=== PATIENT | female | born 1985 | race Caucasian/White ===

== ENCOUNTER 2017-06-12 16:02 | Emergency (ER) | payer MEDICAID, SELFPAY ==
[2017-06-12 16:03] VITALS: BP 123/75; PULSE 68; RESP 16; TEMP 36.9; O2SAT 99; BMI 24.7
--- NOTE | 2017-06-12 17:02 | ED.DCSUM_ITS ---
- ER Visit Summary Date of Service: 06/12/17 Chief Complaint: Right ear pain History of Present Illness: The patient is a [address] Ballesteros. She reports that she has pain just anterior to her right ear that began approximately 1 week ago. She reports a sharp pain is 10 out of 10 at worst 9 out of 10 currently. Is worsened by eating solids or opening her mouth. She taken Tylenol without relief. Patient reports that she had all of her teeth removed 2 years ago. She has not had anything like this previously. Physical Examination: Vitals: Stable. Afebrile. General: Well-nourished and well-developed. Head: Normocephalic atraumatic. HEENT: Right external auditory canal is normal. There is no swelling or exudate. She has no pain with movement of her pinna or palpation of her mastoid. She does have moderate tenderness palpation over her right TM joint. Dental: A dentulous. No pain over Stensen's duct. No evidence of abscess. Neck: Supple, no lymphadenopathy. No JVD. Nontender. Cardiovascular: Regular rate and rhythm. No murmurs. Respiratory: No respiratory distress. Clear to auscultation bilaterally. Abdominal: Soft, nontender, nondistended, normal bowel sounds. No guarding, rebound, or peritoneal signs. Back: Nontender. Extremities: Nontender, no edema. Skin: Normal color, no rash. Neurologic: Alert and oriented ?3. Cranial nerves II through XII are intact. Normal strength and sensation. Psych: Normal affect. Emergency Department Course and Treatment: Patient was given naproxen and is resting comfortably. Treatment Plan: She will be discharged with a prescription for naproxen and instructed to eat a soft diet. She is already made the appointment to see Dr. Bach. She is instructed to continue this appointment. I suggested that she also follow-up with her dentist and speak with them about the possibility of this being due to the fact that she is not had any dentures or teeth for 2 years. Disposition: To home in improved and stable condition. Impression: 1. 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 This note was generated with [employer] software. It may contain incorrect words, spelling, and punctuation that were not noted in review of the chart prior to signing ED Disposition - Plan for ED Patient: Disposition: Home or Assisted Living Chief Complaint: Ear Problem Instructions: ED TMJ Syndrome Prescriptions: Naproxen [Naprosyn] 500 mg PO BID PRN #20 tablet Referrals: Dentist,Your [STAFF PHYSICIAN] - As soon as possible Anup Chandler MD [STAFF PHYSICIAN] - Keep Anish appointment
[2017-06-12] MEDS: Naproxen 250 MG Tablet 500 MG PO (17:23)
[2017-06-12 17:24] VITALS: PULSE 72; RESP 14; O2SAT 99
== END 2017-06-12 17:25 | disposition home or self-care (01) ==
LOC: ED 17:11
PROVIDERS: Emergency Provider Emergency Medicine
DX: M26.601 Right temporomandibular joint disorder, unspecified (principal); K08.109 Complete loss of teeth, unspecified cause, unspecified class; J45.909 Unspecified asthma, uncomplicated; G40.909 Epilepsy, unspecified, not intractable, without status epilepticus; Z90.89 Acquired absence of other organs; F17.200 Nicotine dependence, unspecified, uncomplicated; Z79.899 Other long term (current) drug therapy
CPT/HCPCS: 99283

== ENCOUNTER 2017-07-18 17:13 | Emergency (ER) | payer MEDICAID, SELFPAY ==
[2017-07-18 17:14] VITALS: BP 96/72; PULSE 78; RESP 16; TEMP 36.9; O2SAT 99; BMI 25.4
[2017-07-18] MEDS: Ketorolac 30 MG/ML Syringe IM (18:16)
[2017-07-18] MEDS: SUMAtriptan 6 MG/0.5 ML Vial SC (18:16)
--- NOTE | 2017-07-18 19:16 | ED.VISSUMM ---
- ER Visit Summary Date of Service: 07/18/17 Chief Complaint: Headache History of Present Illness: The patient is a 32 F presenting for evaluation secondary to headache. Patient states that she has had a gradual onset of a headache over the course of the last hour or so. She describes it as a pressure and throbbing over the right side of her head. It is associated with dizziness nausea and photophobia. Patient does have prior history of similar headaches. She denies any direct trauma, fevers neck stiffness or skin rashes. Physical Examination: Vital signs: Within normal limits General: Well-nourished well-developed no acute distress Head: Normocephalic atraumatic, no temporal artery tenderness or vesicular rash noted. No sinus tenderness to percussion. Eyes: PERRLA, EOMI. Direct funduscopy shows no evidence of hemorrhage or papilledema. Neck: Supple, no lymphadenopathy, no JVD no meningismus. Negative Brudzinski, Kernig, jolt, and heel strike Cardiovascular: Heart regular rate and rhythm no murmurs Respiratory: Lung sounds clear to auscultation bilaterally no respiratory distress Abdomen: Soft, nontender Extremities: Nontender, no edema Skin: Normal color, no rash, no evidence of petechia Neuro: Alert and oriented ?4, cranial nerves II through XII intact, normal strength, sensation Test Results: None indicated Emergency Department Course and Treatment: Patient presented with headache. There were no red flag signs or symptoms noted. Patient was treated with Imitrex Toradol and Reglan and did have symptomatic improvement on repeat evaluation. Patient was discharged with follow-up with her primary care physician. Disposition: Discharge Impression: 1. Migraine headache This note was generated with [employer] dictation software. It may contain incorrect words, spelling, and punctuation that were not noted in review of the chart prior to signing ED Disposition - Plan for ED Patient: Disposition: Home or Assisted Living Chief Complaint: Headache Diagnosis: Headache Instructions: ED Cephalgia Unspecified Referrals: Grace Kaur [Primary Care Provider] - As Needed
[2017-07-18 19:25] VITALS: BP 105/70; PULSE 62; RESP 14; O2SAT 99
[2017-07-18] MEDS: Metoclopramide 10 MG Tablet PO (19:28)
== END 2017-07-18 19:38 | disposition home or self-care (01) ==
PROVIDERS: Emergency Provider Emergency Medicine; PCP Family Medicine
DX: G43.909 Migraine, unspecified, not intractable, without status migrainosus (principal); J45.909 Unspecified asthma, uncomplicated; Z79.899 Other long term (current) drug therapy; Z72.0 Tobacco use
CPT/HCPCS: 96372; 99283; J3030

== ENCOUNTER 2017-08-12 21:05 | Emergency (ER) | payer MEDICAID, SELFPAY ==
[2017-08-12 21:07] VITALS: BP 93/57; PULSE 76; RESP 12; TEMP 36.9; O2SAT 95; BMI 26.6
--- NOTE | 2017-08-12 21:28 | RAD_ITS ---
STUDY: X-RAY - PELVIS REASON FOR EXAM: Female, 32 years old. Pain TECHNIQUE: One view of the pelvis was obtained. COMPARISON: None. FINDINGS: There is no evidence of fracture or dislocation. There are no significant degenerative changes. There are no radiodense foreign bodies. RAD/Pelvis 1 or 2 Views IMPRESSION: No fracture or dislocation. Electronically Signed: Mike Espinoza, at 21:58 EDT Tel , Service support ,
--- NOTE | 2017-08-12 21:54 | ED.VISSUMM ---
- ER Visit Summary Date of Service: 08/12/17 Chief Complaint: Left hip pain History of Present Illness: The patient is a 32 F who states that last night she was ordered out of her car by the police. She states that on her way out of the car the car door came back and hit her on the left hip. She states she has a bruise. She states she can barely walk because of the pain. Physical Examination: Afebrile vital signs are stable Gen: Well-nourished well-developed Head: Normocephalic atraumatic Eyes: Perrl EOMI ENT: TMs clear no rhinorrhea moist mucous membranes Neck: Supple no lymphadenopathy no JVD nontender CVS: Regular rate rhythm no murmurs normal S1-S2 Respiratory: No distress clear to auscultation bilaterally chest nontender Abdomen: Soft nondistended normal bowel sounds no masses The patient points to the ASIS on the left side as the area that is bruised. There is an actual brown faint bruise located 2 inches posterior to where she is pointing. When I point this out she says oh yes it is back there. When I palpate her lower ribs she has to hold onto a friend's hand as she rolls around on the bed in pain. This is even with simple light touch of the skin. The actual greater trochanter of the hip is nontender. She moves the hip normally. When I am not in the room she is laughing and moving the hip normally. Back: Nontender Extremity: Nontender no edema Skin: Normal color no rash Neuro: alert orientated ?3 CN II-XII intact normal strength sensation reflexes gait cerebellar Psych: Extremely dramatic Test Results: Pelvis film pain attention to the left iliac crest is negative for fracture Emergency Department Course and Treatment: Patient will be discharged home with Tylenol and ibuprofen instructions to follow-up as needed. Patient states that she does not believe that her x-rays are negative. She states that her muscle is hurting and she knows that she broke it. Patient states that she recently had a take her mother to [place] to have surgery because we told her her ankle was fine and it was really broken. Another member of her [employer] party chimes in and states that he injured his ankle in 1 year later found out that he had torn his ACL in his ankle. The patient states that I do not know shit She states that I can go fuck off. I informed the patient that I had reservations even calling her injury a bruise. The area that she points to is atraumatic. When I pointed out the area of brownish discoloration that may be a bruise it was 2 inches behind the area that she pointed to her pain. I believe the patient is here for reasons that she is not being truthful for. Impression:. 1. Left abdominal wall pain This note was generated with [employer] dictation software. It may contain incorrect words, spelling, and punctuation that were not noted in review of the chart prior to signing ED Disposition - Plan for ED Patient: Disposition: Home or Assisted Living Chief Complaint: Lower Extremity Injury Instructions: ED Contusion Soft Tissue Referrals: Grace Kaur [Primary Care Provider] - As Needed
--- NOTE | 2017-08-12 21:57 | ED.DCSUM_ITS ---
- ER Visit Summary Date of Service: 08/12/17 Chief Complaint: Left hip pain History of Present Illness: The patient is a 32 F who states that last night she was ordered out of her car by the police. She states that on her way out of the car the car door came back and hit her on the left hip. She states she has a bruise. She states she can barely walk because of the pain. Physical Examination: Afebrile vital signs are stable Gen: Well-nourished well-developed Head: Normocephalic atraumatic Eyes: Perrl EOMI ENT: TMs clear no rhinorrhea moist mucous membranes Neck: Supple no lymphadenopathy no JVD nontender CVS: Regular rate rhythm no murmurs normal S1-S2 Respiratory: No distress clear to auscultation bilaterally chest nontender Abdomen: Soft nondistended normal bowel sounds no masses The patient points to the ASIS on the left side as the area that is bruised. There is an actual brown faint bruise located 2 inches posterior to where she is pointing. When I point this out she says oh yes it is back there. When I palpate her lower ribs she has to hold onto a friend's hand as she rolls around on the bed in pain. This is even with simple light touch of the skin. The actual greater trochanter of the hip is nontender. She moves the hip normally. When I am not in the room she is laughing and moving the hip normally. Back: Nontender Extremity: Nontender no edema Skin: Normal color no rash Neuro: alert orientated ?3 CN II-XII intact normal strength sensation reflexes gait cerebellar Psych: Extremely dramatic Test Results: Pelvis film pain attention to the left iliac crest is negative for fracture Emergency Department Course and Treatment: Patient will be discharged home with Tylenol and ibuprofen instructions to follow-up as needed. Patient states that she does not believe that her x-rays are negative. She states that her muscle is hurting and she knows that she broke it. Patient states that she recently had a take her mother to [place] to have surgery because we told her her ankle was fine and it was really broken. 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 The patient states that I do not know shit She states that I can go fuck off. I informed the patient that I had reservations even calling her injury a bruise. The area that she points to is atraumatic. When I pointed out the area of brownish discoloration that may be a bruise it was 2 inches behind the area that she pointed to her pain. I believe the patient is here for reasons that she is not being truthful for. Impression:. 1. Left abdominal wall pain This note was generated with [employer] dictation software. It may contain incorrect words, spelling, and punctuation that were not noted in review of the chart prior to signing ED Disposition - Plan for ED Patient: Disposition: Home or Assisted Living Chief Complaint: Lower Extremity Injury Instructions: ED Contusion Soft Tissue Referrals: Grace Kaur [Primary Care Provider] - As Needed
[2017-08-12 22:18] VITALS: PULSE 77; RESP 15; O2SAT 97
--- NOTE | 2017-08-12 22:21 | ED.RN ---
d/c instructions reviewed with patient. pt upset and reports she hasn't heard from the doctor. informed dr escobar, he went back to inform patient that the xray was negative and to take tylenol or motrin for pain. pt became irritated and said that her mother had been misdiagnosed the last time she was here. reviewed radiology findings with patient and informed again that it was negative for fracture or dislocation. tylenol & motrin is best treatment at home.
== END 2017-08-12 22:24 | disposition home or self-care (01) ==
PROVIDERS: Emergency Provider Emergency Medicine; Family Provider Family Medicine; PCP Family Medicine
DX: S70.02XA Contusion of left hip, initial encounter (principal); R10.9 Unspecified abdominal pain; W22.8XXA Striking against or struck by other objects, initial encounter; Y93.9 Activity, unspecified; Y92.9 Unspecified place or not applicable; J45.909 Unspecified asthma, uncomplicated; F98.8 Other specified behavioral and emotional disorders with onset usually occurring in childhood and adolescence; Z90.89 Acquired absence of other organs; Z79.899 Other long term (current) drug therapy
CPT/HCPCS: 72170; 99282

== ENCOUNTER 2017-09-05 02:27 | Emergency (ER) | payer MEDICAID, SELFPAY ==
[2017-09-05 02:28] VITALS: BP 104/58; PULSE 70; RESP 18; TEMP 37.2; O2SAT 98; BMI 26.3
--- NOTE | 2017-09-05 03:35 | ED.VISSUMM ---
- ER Visit Summary Date of Service: 09/05/17 Chief Complaint: Seizure History of Present Illness: The patient is a 32 F presenting for evaluation due to seizure. Patient has an underlying history of seizures, she usually takes Lamictal, she has been out of it not taking it. She had tonic-clonic seizure today. She denies any recent illness. Physical Examination: Vital signs are within normal limits, patient is afebrile. General: Patient is well-nourished well-developed and in no acute distress. Head: Normocephalic, atraumatic Eyes: Pupils equal round and reactive bilaterally, extra occular motion intact bialterally ENT: Moist mucous membranes, there is a tongue piercing but no evidence of tongue laceration or abrasion Neck: Supple, no lymphadenopathy, no JVD, no meningismus CVS: Heart regular rate and rhythm, no murmurs, rubs or gallops, radial pulses 2+ bilaterally Resp: Respirations nondistressed, lung sounds clear bilaterally Abdomen: Soft, nontender, nondistended, no palpable masses, normal bowel sounds Back: Nontender Extremities: Nontender, atraumatic, active full range of motion, no peripheral edema Skin: warm, no rashes, no petechia Neuro: Alert and oriented x 4, CN 2-12 intact, no lateralizing neurological defecits Psyc: Normal affect Test Results: None indicated Emergency Department Course and Treatment: Patient presented secondary to breakthrough seizure due to medication noncompliance. She was administered Lamictal in the emergency department. Patient was observed for an hour she had full return of normal consciousness and no repeat seizure episodes. Patient will be given referral to neurology, and will be discharged with a course of Lamictal. Disposition: Discharge Impression: 1. Breakthrough seizure secondary to medication noncompliance This note was generated with [employer] dictation software. It may contain incorrect words, spelling, and punctuation that were not noted in review of the chart prior to signing ED Disposition - Plan for ED Patient: Disposition: Home or Assisted Living Chief Complaint: Seizure Diagnosis: Breakthrough seizure Instructions: ED Seizure Recurrent Prescriptions: Lamotrigine [Lamictal] 200 mg PO BID #60 tab Referrals: Grace Kaur [Primary Care Provider] - As soon as possible Nilam Austin MD [STAFF PHYSICIAN] - As soon as possible
--- NOTE | 2017-09-05 03:40 | ED.DCSUM_ITS ---
- ER Visit Summary Date of Service: 09/05/17 Chief Complaint: Seizure History of Present Illness: The patient is a 32 F presenting for evaluation due to seizure. Patient has an underlying history of seizures, she usually takes Lamictal, she has been out of it not taking it. She had tonic-clonic seizure today. She denies any recent illness. Physical Examination: Vital signs are within normal limits, patient is afebrile. General: Patient is well-nourished well-developed and in no acute distress. Head: Normocephalic, atraumatic Eyes: Pupils equal round and reactive bilaterally, extra occular motion intact bialterally ENT: Moist mucous membranes, there is a tongue piercing but no evidence of tongue laceration or abrasion Neck: Supple, no lymphadenopathy, no JVD, no meningismus CVS: Heart regular rate and rhythm, no murmurs, rubs or gallops, radial pulses 2 + bilaterally Resp: Respirations nondistressed, lung sounds clear bilaterally Abdomen: Soft, nontender, nondistended, no palpable masses, normal bowel sounds Back: Nontender Extremities: Nontender, atraumatic, active full range of motion, no peripheral edema Skin: warm, no rashes, no petechia Neuro: Alert and oriented x 4, CN 2-12 intact, no lateralizing neurological defecits Psyc: Normal affect Test Results: None indicated Emergency Department Course and Treatment: Patient presented secondary to breakthrough seizure due to medication noncompliance. She was administered Lamictal in the emergency department. Patient was observed for an hour she had full return of normal consciousness and no repeat seizure episodes. Patient will be given referral to neurology, and will be discharged with a course of Lamictal. Disposition: Discharge Impression: 1. Breakthrough seizure secondary to medication noncompliance This note was generated with [employer] dictation software. It may contain incorrect words, spelling, and punctuation that were not noted in review of the chart prior to signing ED Disposition - Plan for ED Patient: Disposition: Home or Assisted Living Chief Complaint: Seizure Diagnosis: Breakthrough seizure Instructions: ED Seizure Recurrent Prescriptions: Lamotrigine [Lamictal] 200 mg PO BID #60 tab Referrals: Grace Kaur [Primary Care Provider] - As soon as possible Nilam Austin MD [STAFF PHYSICIAN] - As soon as possible
[2017-09-05] MEDS: lamoTRIgine 100 MG Tablet 250 MG PO (04:01)
[2017-09-05 04:02] VITALS: BP 99/57; PULSE 77; RESP 22; O2SAT 98
== END 2017-09-05 04:10 | disposition home or self-care (01) ==
PROVIDERS: Emergency Provider Emergency Medicine; Family Provider Family Medicine; PCP Family Medicine
DX: G40.909 Epilepsy, unspecified, not intractable, without status epilepticus (principal); Z91.14 Patient's other noncompliance with medication regimen; Z79.899 Other long term (current) drug therapy
CPT/HCPCS: 99284; A4216

== ENCOUNTER 2017-11-09 03:29 | Emergency (ER) | payer MEDICAID, SELFPAY ==
[2017-11-09 03:30] VITALS: BP 104/66; PULSE 72; RESP 14; TEMP 37.1; O2SAT 98
[2017-11-09 03:31] VITALS: BP 104/66; PULSE 73; RESP 14; TEMP 37.1; O2SAT 97; BMI 24.7
--- NOTE | 2017-11-09 04:35 | ED.VISSUMM ---
- ER Visit Summary Date of Service: 11/09/17 Chief Complaint: Rash History of Present Illness: The patient is a 32 F who presents for 2 days of rash on her right upper extremity. Patient has had a type II for 2 months that has some pink ink in it. Patient developed an itchy rash located over the tattoo 2 days ago. She is also complaining of to itchy bumps on her right arm. Denies fever or any other constitutional symptoms. She is allergic to Benadryl. Physical Examination: Patient is awake and alert, well-appearing. Tattoo on the right anterior forearm with erythematous coalescing papules, mainly over the pink ink. 2 nodules on the left shoulder consistent with arthropod bites. Remainder of exam unremarkable. Test Results: [] Emergency Department Course and Treatment: Patient's examination is consistent with an irritant dermatitis, which appears to be from the tattoo ink. There is no evidence of cellulitis. Patient was prescribed hydrocortisone cream to use on the areas of irritation, including on the insect bites to help with the itching. Patient is very well-appearing and no other workup is indicated at this time. She is to follow-up with her primary care provider for any further concerns. Patient discharged home. Treatment Plan: [] Disposition: [] Impression: dermatitis secondary to tattoo ink This note was generated with [employer] dictation software. It may contain incorrect words, spelling, and punctuation that were not noted in review of the chart prior to signing ED Disposition - Plan for ED Patient: Chief Complaint: Rash Prescriptions: Hydrocortisone 1% Crm [Hytone] 1 applic TOPICAL BID 7 Days #1 tube Referrals: Grace Kaur [Primary Care Provider] -
--- NOTE | 2017-11-09 04:38 | ED.DEP ---
ED Disposition - Plan for ED Patient: Disposition: Home or Assisted Living Chief Complaint: Rash Instructions: ED Dermatitis Non Specific Rash Prescriptions: Hydrocortisone 1% Crm [Hytone] 1 applic TOPICAL BID 7 Days #1 tube Referrals: Grace Kaur [Primary Care Provider] - 3-5 Days if not improving
[2017-11-09 04:43] VITALS: BP 106/70; PULSE 80; RESP 18; O2SAT 97
== END 2017-11-09 04:43 | disposition home or self-care (01) ==
PROVIDERS: Emergency Provider Emergency Medicine; Family Provider Family Medicine; PCP Family Medicine
DX: L24.89 Irritant contact dermatitis due to other agents (principal); G40.909 Epilepsy, unspecified, not intractable, without status epilepticus; J45.909 Unspecified asthma, uncomplicated; Z79.899 Other long term (current) drug therapy
CPT/HCPCS: 99282

== ENCOUNTER 2017-11-19 01:38 | Emergency (ER) | payer MEDICAID, SELFPAY ==
[2017-11-19 01:39] VITALS: BP 104/56; PULSE 63; RESP 20; TEMP 37.2; O2SAT 99; BMI 25.4
--- NOTE | 2017-11-19 01:57 | CT_ITS ---
STUDY: CT ABDOMEN AND PELVIS WITHOUT CONTRAST REASON FOR EXAM: Female, 32 years old. Left upper quadrant abdominal pain with nausea and vomiting. Patient has had an appendectomy. RADIATION DOSAGE (If Supplied By Facility): CTDIvol = ( 6.61 ) mGy, DLP = ( 326.90 ) mGycm TECHNIQUE: Transaxial images were obtained from the dome of the diaphragm to the symphysis pubis without oral contrast, and without intravenous contrast. Sagittal and coronal images were reconstructed. Individualized dose optimization techniques were used for this CT. COMPARISON: None. FINDINGS: The visualized lung bases are unremarkable. The visualized portions of the heart are within normal limits. Normal liver. The gallbladder is contracted. Normal spleen. Normal pancreas. Normal bilateral adrenal glands. Normal right kidney. Normal left kidney. Normal visualized stomach. There is no evidence for dilated bowel, ascites or pneumoperitoneum. Small bowel has a grossly normal appearance. Stool is visible throughout the colon There is non-visualization of the appendix. Normal abdominal aorta. Normal inferior vena cava. Normal retroperitoneum. Normal urinary bladder. Normal visualized uterus. Normal abdominal wall. Normal osseous structures. CT/Abdomen/Pelvis without Cont IMPRESSION: No CT evidence of acute intra-abdominal disease. Electronically Signed: Rhoda Tripp MD at 3:55 EDT , Service support ,
[2017-11-19] MEDS: 0.9% Normal Saline 1,000 ML 250 ML IV (02:07)
[2017-11-19] MEDS: Ondansetron 4 MG/2 ML Vial IV (02:08)
[2017-11-19] MEDS: Ketorolac 30 MG/ML Syringe IV (02:13)
[2017-11-19 02:20] LABS: Bacteria 0 SEEN /hpf (None Seen); Red Blood Cells-Urine 0 SEEN /hpf (0-5); White Blood Cells 0 SEEN /hpf (0-5)
[2017-11-19 02:23] LABS: Color, Urine Yellow (Yellow); Glucose, Dipstick Normal (Normal); Ketone-Dipstick Negative (Negative); Leukocyte Esterase-Dipstick Negative /ul (Negative); Nitrite-Dipstick Negative (Negative); Occult Blood-Urine Negative /ul (Negative); Protein-Dipstick Negative (Negative); Specific Gravity, Urine 1.025 (1.002-1.030); Urine Bilirubin Dipstick Negative (Negative); Urine Clarity Clear (Clear); Urine Urobilinogen Normal (Normal)
[2017-11-19 02:34] LABS: Mucous, Urine 1+ /hpf (<or=2+); Squamous Epithelial Cells - UA 5-10 SEEN /hpf (5-10)
[2017-11-19 02:39] LABS: Pregnancy, Serum, hCG Quali. NEGATIVE Negative (0-9 Nonpreg)
--- NOTE | 2017-11-19 02:41 | ED.VISSUMM ---
- ER Visit Summary Date of Service: 11/19/17 Chief Complaint: Left flank pain History of Present Illness: The patient is a [address] Ballesteros. She reports that at 1230 she had the abrupt onset of a sharp, throbbing left flank pain with radiation to left upper abdomen. Pain is 10 out of 10 at worst 9 out of 10 currently. It is worsened by laying straight. Is relieved by sitting up. She reports she has been nausea and vomited twice. No blood or emesis. Last bowel movement was yesterday. No melena or hematochezia. Patient reports that she has had frequent urination for the past 2 days. No dysuria or hematuria. Her last menstrual period was November 01. No vaginal bleeding or discharge. No personal history of kidney stones. She does have a family history of kidney stones. Physical Examination: Vitals: Stable. Afebrile. General: Well-nourished and well-developed. Head: Normocephalic atraumatic. Neck: Supple, no lymphadenopathy. No JVD. Nontender. Cardiovascular: Regular rate and rhythm. No murmurs. Respiratory: No respiratory distress. Clear to auscultation bilaterally. Abdominal: Soft, moderate left upper quadrant tenderness to palpation, nondistended, normal bowel sounds. No guarding, rebound, or peritoneal signs. Back: Moderate left CVA tenderness. Extremities: Nontender, no edema. Skin: Normal color, no rash. Neurologic: Alert and oriented ?3. Cranial nerves II through XII are intact. Normal strength and sensation. Psych: Normal affect. Test Results: UA is negative. test is negative. CT flank shows no acute disease. Emergency Department Course and Treatment: Patient had an IV placed. She was given Toradol and Zofran IV. She is resting comfortably. Treatment Plan: Patient will be discharged with Zofran and naproxen. Instructed to follow with her primary care physician in 1-2 days if not improving. Return to the emergency department for any worsening symptoms. Disposition: To home in improved and stable condition. Impression: 1. Left flank pain, acute. This note was generated with [employer] dictation software. It may contain incorrect words, spelling, and punctuation that were not noted in review of the chart prior to signing ED Disposition - Plan for ED Patient: Chief Complaint: Abd Pain Instructions: ED Flank Pain Uncertain Cause Prescriptions: Ondansetron [Zofran Odt] 4 mg PO Q8H PRN PRN #10 tablet PRN Reason: Nausea Naproxen [Naprosyn] 500 mg PO BID #14 tablet Referrals: Grace Kaur [Primary Care Provider] - 1-2 Days if not improving
[2017-11-19 04:24] VITALS: BP 95/48; PULSE 71; RESP 14; O2SAT 98
--- NOTE | 2017-11-19 04:25 | ED.RN ---
THIS NURSE REVIEWED D/C INSTRUCTIONS WITH PT. PT VERBALIZED UNDERSTANDING OF INSTRUCTIONS. IV D/C. IV CATHETER INTACT. PT TOLERATED WELL. PT DENIES FURTHER NEEDS OR QUESTIONS AT THIS TIME. PT AMBULATES FROM ROOM ON OWN WITHOUT ASSISTANCE FROM STAFF
== END 2017-11-19 04:26 | disposition home or self-care (01) ==
PROVIDERS: Emergency Provider Emergency Medicine; Family Provider Family Medicine; PCP Family Medicine
DX: R10.9 Unspecified abdominal pain (principal); R11.2 Nausea with vomiting, unspecified; R35.0 Frequency of micturition; J45.909 Unspecified asthma, uncomplicated; G40.909 Epilepsy, unspecified, not intractable, without status epilepticus; Z79.899 Other long term (current) drug therapy; F17.200 Nicotine dependence, unspecified, uncomplicated
CPT/HCPCS: 74176; 81001; 84703; 96361; 96374; 96375; 99283; J7030

== ENCOUNTER 2017-11-22 22:37 | Emergency (ER) | payer MEDICAID, SELFPAY ==
[2017-11-22 22:38] VITALS: BP 91/61; PULSE 115; RESP 20; TEMP 36.7; O2SAT 100; BMI 24.7
--- NOTE | 2017-11-22 23:22 | ED.VISSUMM ---
- ER Visit Summary Date of Service: 11/22/17 Chief Complaint: [Right ear pain and right-sided sore throat] History of Present Illness: The patient is a 32 F [presents to the emergency department with complaint of sore throat and right ear pain that started around 6 PM today. Patient complains of pain with swallowing. Patient's had some mild nausea. Patient denies any fever. Patient denies sick contacts.] Physical Examination: [HEENT-PERRLA, EOMI. Cranial nerves II through XII grossly intact. TMs clear. Mucous membranes moist. No adenopathy. Patient has some faint pharyngeal erythema noted. No exudates. Uvula in the midline without trismus. Cardiovascular-regular rate and rhythm without murmur or ectopy Lungs-clear to auscultation, chest wall stable without crepitus or subcu emphysema Abdomen-normoactive bowel sounds, soft, nontender, no rebound or rigidity, no peritoneal signs. Extremities-intact ?4, normal range of motion, normal pulses, atraumatic] Test Results: [Rapid strep screen was negative] Emergency Department Course and Treatment: [Patient was given Dickinson for pain] Treatment Plan: [Dickinson tablets for pain] Disposition: [Discharged to home in stable condition. Patient advised to follow-up with her primary care physician in 5-7 days. Patient to return if worsening pain, difficulty swallowing secretions, or condition should worsen in any way.] Impression: [Viral pharyngitis] This note was generated with [employer] dictation software. It may contain incorrect words, spelling, and punctuation that were not noted in review of the chart prior to signing ED Disposition - Plan for ED Patient: Chief Complaint: Sore Throat Referrals: Grace Kaur [Primary Care Provider] -
--- NOTE | 2017-11-22 23:24 | ED.DEP ---
ED Disposition - Plan for ED Patient: Chief Complaint: Sore Throat Instructions: ED Pharyngitis Viral Prescriptions: Hydrocodone Bitart/Apap 5-325 [[place] 5MG-325MG] 1 tab PO Q4H PRN PRN 2 Days #10 tab PRN Reason: Pain Referrals: Grace Kaur [Primary Care Provider] - 5-7 Days
[2017-11-22] MEDS: HYDROcodone Bitartrate/Apap 5/325 Tablet PO (23:32)
== END 2017-11-22 23:35 | disposition home or self-care (01) ==
LOC: ED 23:24
PROVIDERS: Emergency Provider Emergency Medicine; Family Provider Family Medicine; PCP Family Medicine
DX: J02.9 Acute pharyngitis, unspecified (principal); H92.01 Otalgia, right ear; R11.0 Nausea; R05 Cough; J45.909 Unspecified asthma, uncomplicated; G40.909 Epilepsy, unspecified, not intractable, without status epilepticus; Z79.899 Other long term (current) drug therapy; Z72.0 Tobacco use
CPT/HCPCS: 87880; 99282

== ENCOUNTER 2017-12-31 21:02 | Emergency (ER) | payer MEDICAID, SELFPAY ==
[2017-12-31 21:02] VITALS: BP 90/57; PULSE 78; RESP 16; TEMP 36.6; O2SAT 99; BMI 25.0
[2017-12-31 22:01] VITALS: BP 83/56; RESP 16
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
[2017-12-31] MEDS: Naproxen 500 MG Tablet PO (22:47)
--- NOTE | 2017-12-31 22:48 | ED.RN ---
DR. MERINO AWARE OF PT'S BP. PT STATES THIS IS HER NORMAL BP. REVIEWED D/C INSTRUCTIONS, FOLLOW UP CARE, PRESCRIPTION, AND S/S THAT WOULD WARRANT A RETURN TO THE ED WITH PT. PT VERBALIZED AN UNDERSTANDING AND DENIES FURTHER QUESTIONS FOR THIS RN. PT SKIN P/W/D, RESP EVEN AND UNLABORED, PT A&O X 3, NO DISTRESS NOTED. PT AMBULATED OUT OF ED, GAIT STEADY.
== END 2017-12-31 22:50 | disposition home or self-care (01) ==
PROVIDERS: Emergency Provider Emergency Medicine; Family Provider Family Medicine; PCP Family Medicine
DX: S80.11XA Contusion of right lower leg, initial encounter (principal); X58.XXXA Exposure to other specified factors, initial encounter; Y93.9 Activity, unspecified; Y92.9 Unspecified place or not applicable; J45.909 Unspecified asthma, uncomplicated; F31.9 Bipolar disorder, unspecified; F90.9 Attention-deficit hyperactivity disorder, unspecified type; G40.909 Epilepsy, unspecified, not intractable, without status epilepticus; Z85.44 Personal history of malignant neoplasm of other female genital organs; Z79.899 Other long term (current) drug therapy; Z72.0 Tobacco use
CPT/HCPCS: 93971; 99283

== ENCOUNTER 2018-05-19 00:14 | Emergency (ER) | payer MEDICAID, SELFPAY ==
[2018-05-19 00:14] VITALS: BMI 24.7
[2018-05-19 00:15] VITALS: BP 106/57; PULSE 86; RESP 16; TEMP 36.9; O2SAT 98; BMI 21.9
--- NOTE | 2018-05-19 00:33 | ED.VISSUMM ---
- ER Visit Summary Date of Service: 05/19/18 Chief Complaint: Near syncopal History of Present Illness: The patient is a 33 F who has been dealing with heavy vaginal bleeding. She was recently started on progestin therapy. Her bleeding has slowed down, and now she is passing brown blood occasionally. She has some nausea and she feels dizzy and lightheaded at times like she might pass out. She never had issues like this before. She is worried that she might be anemic. Physical Examination: Afebrile and vital signs unremarkable. The patient is alert and oriented and in no acute distress. Skin is normal in color without pallor or diaphoresis. Heart regular. Lungs clear. Abdomen soft and nontender. Normal bowel sounds. Test Results: CBC, BMP, urinalysis, hCG pending. Emergency Department Course and Treatment: Patient may be anemic, and we will check labs, urinalysis, and testing. This may be related to her new medication, but I am not aware if this is a common side effect. She has no red flag features like neurologic symptoms, chest pain, shortness of breath. Treated with a fluid bolus as well. Will reassess. CBC normal. BMP unremarkable. Urinalysis showed elevated leukocyte esterase white cells, epithelial cells, and bacteria. This is a possible infection and a culture was sent. She will be treated with Macrobid. test was negative. Patient stable on reevaluation and appropriate for outpatient follow-up. 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 Return for any new or worsening issues. Treatment Plan: As above Disposition: Discharge Impression: 1. Vaginal spotting 2. near syncope 3. UTI, cystitis This note was generated with [employer] dictation software. It may contain incorrect words, spelling, and punctuation that were not noted in review of the chart prior to signing ED Disposition - Plan for ED Patient: Chief Complaint: Dizziness Referrals: Grace Kaur [Primary Care Provider] -
[2018-05-19 00:36] LABS: Mucous, Urine 0 SEEN /hpf (<or=2+)
--- NOTE | 2018-05-19 00:36 | ED.DCSUM_ITS ---
- ER Visit Summary Date of Service: 05/19/18 Chief Complaint: Near syncopal History of Present Illness: The patient is a 33 F who has been dealing with heavy vaginal bleeding. She was recently started on progestin therapy. Her bleeding has slowed down, and now she is passing brown blood occasionally. She has some nausea and she feels dizzy and lightheaded at times like she might pass out. She never had issues like this before. She is worried that she might be anemic. Physical Examination: Afebrile and vital signs unremarkable. The patient is alert and oriented and in no acute distress. Skin is normal in color without pallor or diaphoresis. Heart regular. Lungs clear. Abdomen soft and nontender. Normal bowel sounds. Test Results: CBC, BMP, urinalysis, hCG pending. Emergency Department Course and Treatment: Patient may be anemic, and we will check labs, urinalysis, and testing. This may be related to her new medication, but I am not aware if this is a common side effect. She has no red flag features like neurologic symptoms, chest pain, shortness of breath. Treated with a fluid bolus as well. Will reassess. CBC normal. BMP unremarkable. Urinalysis showed elevated leukocyte esterase white cells, epithelial cells, and bacteria. This is a possible infection and a culture was sent. She will be treated with Macrobid. test was negative. Patient stable on reevaluation and appropriate for outpatient follow-up. 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 Return for any new or worsening issues. Treatment Plan: As above Disposition: Discharge Impression: 1. Vaginal spotting 2. near syncope 3. UTI, cystitis This note was generated with [employer] dictation software. It may contain incorrect words, spelling, and punctuation that were not noted in review of the chart prior to signing ED Disposition - Plan for ED Patient: Chief Complaint: Dizziness Referrals: Grace Kaur [Primary Care Provider] -
[2018-05-19 00:50] LABS: Absolute Lymphocyte Count 2.56 X10^3/ul (0.83-4.51); Basophil# 0.03 X10^3/uL; Basophil% 0.3 % (0-1); Eosinophil# 0.25 X10^3/uL; Eosinophils% 2.4 % (0-5); Hematocrit 37.8 % (37-47); Hemoglobin 12.8 g/dl (12.0-15.0); Lymphocyte # 2.56 X10^3/ul (4.0); Lymphocyte % 24.1 % (19-41); Mean Corp Hgb Conc 33.9 g/gl (32-36); Mean Corpuscular Hgb 29.1 pg (27.0-32.0); Mean Corpuscular Volume 85.9 fL (81-99); Mean Platelet Vol. 10.4 fl (6.2-12.0); Monocyte# 0.77 X10^3/uL; Monocyte% 7.3 % (0-10); Neutrophil # 6.97 X10^3/uL (2.7-7.7); Neutrophil % 65.6 % (47-70); Platelet Count 263 K/mm3 (150-450); RBC Distribution Width CV 13.7 % (11.6-14.6); RBC Distribution Width SD 43.2 fl (35.1-43.9); White Blood Count 10.6 K/mm3 (4.4-11.0)
[2018-05-19 00:50] LABS: Color, Urine Yellow (Yellow); Glucose, Dipstick Normal (Normal); Ketone-Dipstick 5 mg/dl (Negative); Leukocyte Esterase-Dipstick 500 /ul (Negative); Nitrite-Dipstick Negative (Negative); Occult Blood-Urine 50 /ul (Negative); Protein-Dipstick 30 mg/dl (Negative); Urine Bilirubin Dipstick Negative (Negative); Urine Clarity Sl. Cloudy (Clear); Urine Urobilinogen 1 mg/dl (Normal)
[2018-05-19 00:56] LABS: Bacteria 1+ /hpf (None Seen); Red Blood Cells-Urine 0-5 SEEN /hpf (0-5); Squamous Epithelial Cells - UA 10-25 SEEN /hpf (5-10); White Blood Cells 5-10 SEEN /hpf (0-5)
[2018-05-19 00:57] LABS: Internal QC Validated? YES +Cl - CLEAR BKGD; Pregnancy, Urine Negative Negative
[2018-05-19 00:58] LABS: POSITIVE COUNT NO; POSITIVE DIFFERENTIAL NO; POSITIVE MORPHOLOGY NO
[2018-05-19 01:02] LABS: Anion Gap 8 (5-15); BUN 15 mg/dL (7-18); Calcium,Total 8.5 mg/dL (8.5-10.1); Chloride 111 mmol/L (98-107); Creatinine, Serum 0.71 mg/dL (0.55-1.02); EST Glomerular Filtration Rate 101 mL/min (>60); Est Glom Filt Rate - Afr Amer 122 mL/min (>60); Glucose 94 mg/dL (74-106); Potassium 3.5 mmol/L (3.5-5.1); Sodium Level 142 mmol/L (136-145)
--- NOTE | 2018-05-19 01:24 | ED.DEP ---
ED Disposition - Plan for ED Patient: Chief Complaint: Dizziness Instructions: ED Near Syncope Unkn Prescriptions: Nitrofurantoin Macrocrystals [Macrobid] 100 mg PO Q12 #10 cap Referrals: Grace Kaur [Primary Care Provider] -
[2018-05-19] MEDS: Nitrofurantoin Macrocrystals 100 MG Capsule PO (01:57)
[2018-05-19 02:00] VITALS: BP 101/75; PULSE 67; RESP 15; O2SAT 100
== END 2018-05-19 02:03 | disposition home or self-care (01) ==
PROVIDERS: Emergency Provider Emergency Medicine; Family Provider Family Medicine; PCP Family Medicine
DX: N93.9 Abnormal uterine and vaginal bleeding, unspecified (principal); R55 Syncope and collapse; N39.0 Urinary tract infection, site not specified; G43.909 Migraine, unspecified, not intractable, without status migrainosus; G40.909 Epilepsy, unspecified, not intractable, without status epilepticus; Z79.899 Other long term (current) drug therapy; F17.210 Nicotine dependence, cigarettes, uncomplicated
CPT/HCPCS: 80048; 81001; 81025; 85025; 87086; 87088; 99285; J7030; J7040; A4216

== ENCOUNTER 2018-10-01 21:08 | Emergency (ER) | payer MEDICAID, SELFPAY ==
[2018-10-01 21:09] VITALS: BP 100/65; PULSE 103; RESP 18; TEMP 37.2; O2SAT 98; BMI 27.2
[2018-10-01 22:38] VITALS: BP 108/65; PULSE 91; RESP 20; O2SAT 98
[2018-10-01 23:03] LABS: Absolute Lymphocyte Count 0.65 X10^3/ul (0.83-4.51); Absolute Neutrophil Count 7.2 X10^3/uL (2.0-7.7); Basophil# 0.02 X10^3/uL; Basophil% 0.2 % (0-1); Eosinophil# 0.18 X10^3/uL; Eosinophils% 2.1 % (0-5); Hematocrit 39.8 % (37-47); Hemoglobin 13.8 g/dl (12.0-15.0); Lymphocyte # 0.65 X10^3/ul (4.0); Lymphocyte % 7.6 % (19-41); Mean Corp Hgb Conc 34.7 g/gl (32-36); Mean Corpuscular Hgb 29.2 pg (27.0-32.0); Mean Corpuscular Volume 84.1 fL (81-99); Mean Platelet Vol. 9.8 fl (6.2-12.0); Monocyte# 0.53 X10^3/uL; Monocyte% 6.2 % (0-10); Neutrophil # 7.18 X10^3/uL (2.7-7.7); Neutrophil % 83.7 % (47-70); Platelet Count 234 K/mm3 (150-450); RBC Distribution Width CV 13.2 % (11.6-14.6); RBC Distribution Width SD 40.8 fl (35.1-43.9); Red Blood Count 4.73 M/mm3 (4.2-5.4); White Blood Count 8.6 K/mm3 (4.4-11.0)
--- NOTE | 2018-10-01 23:03 | EKG12_ITS ---
Test Reason : Blood Pressure : / mmHG Vent. Rate : 087 BPM Atrial Rate : 087 BPM P-R Int : 190 ms QRS Dur : 096 ms QT Int : 372 ms P-R-T Axes : 055 034 039 degrees QTc Int : 447 ms Normal sinus rhythm Possible Left atrial enlargement Low voltage QRS Incomplete right bundle branch block Septal infarct , age undetermined Abnormal ECG Confirmed by AIRAM VILLAVICENCIO ([id number]), film editor ROXANN MORIN ([id number]) on 10/04/2018 4:20:31 PM Referred By: Confirmed By:AIRAM VILLAVICENCIO
[2018-10-01 23:04] LABS: POSITIVE COUNT NO; POSITIVE DIFFERENTIAL NO; POSITIVE MORPHOLOGY NO
[2018-10-01 23:05] LABS: BUN 12 mg/dL (7-18); BUN/Creat Ratio 14.4 RATIO (10-20); Calcium,Total 8.8 mg/dL (8.5-10.1); Chloride 108 mmol/L (98-107); Creatinine, Serum 0.84 mg/dL (0.55-1.02); EST Glomerular Filtration Rate 84 mL/min (>60); Est Glom Filt Rate - Afr Amer 102 mL/min (>60); Estimated Creatinine Clearance 80.27 ml/min; Glucose 96 mg/dL (74-106); Potassium 3.6 mmol/L (3.5-5.1); Sodium Level 138 mmol/L (136-145)
--- NOTE | 2018-10-01 23:05 | ED.VIS.GEN ---
History of Present Illness Chief Complaint: General Illness Informant: Patient, Family Onset: Today - Lightheadedness and not feeling well Context: Sudden Onset - Sudden Timing: Continuous - Vague generalized symptoms continuous, Intermittent - With standing. Quality: Dizziness, fatigue, sleepiness, malaise Location: Home Current Severity: Mild Maximum Severity: Moderate Worsened by: Standing Relieved by: Nothing Associated Symptoms: No constitutional symptoms Narrative: Patient is a 33-year-old woman who presents with vague symptoms that started today. She reports dizziness. Patient's definition of dizziness is lightheadedness. She also complains of fatigue and malaise. She denies fever, chills night sweats. She denies ocular, visual or auditory symptoms. She does have cough. She is a smoker. She denies shortness of breath or dyspnea exertion. Her cough is nonproductive. She denies chest pain. She denies nausea, vomiting or diarrhea. She denies urologic symptoms. She denies weakness in her arms or legs. She denies problems with balance. Prior similar symptoms: No Recent Illness/Hospitalization: No - Past Medical History (1) Seizures Status: Acute (2) Bipolar disorder Status: Chronic (3) Tobacco user Status: Chronic Past Medical History - Allergies and Home Meds Allergies/Adverse Reactions: Allergies amoxicillin Allergy (Verified 10/01/18 21:13) Hives diphenhydramine HCl [From Benadryl] Allergy (Verified 10/01/18 21:13) Anaphylaxis egg Allergy (Verified 10/01/18 21:13) Hives influenza virus vaccine, specific [influenza virus vacc,specific] Allergy (Verified 10/01/18 21:13) Hives latex Allergy (Verified 10/01/18 21:13) Hives Penicillins Allergy (Verified 10/01/18 21:13) Anaphylaxis tramadol Allergy (Verified 10/01/18 21:13) Angioedema sulfamethoxazole [From Bactrim] Adverse Reaction (Verified 10/01/18 21:13) Vomiting trimethoprim [From Bactrim] Adverse Reaction (Verified 10/01/18 21:13) Vomiting ENTERIC COATING Allergy (Uncoded 10/01/18 21:13) Swelling Primary Care Physician: Care Physician,No Primary [Primary Care Provider] - Prior records reviewed: Yes Surgical History: coronary bypass surgery Lives: With Family Smoking Status: Current some day smoker Alcohol: None Drugs: None Review of Systems General: Reports: Malaise. Denies: Chills, Fever, Subjective, Sweats, Weight loss, - Eyes: Denies: Visual changes - bilaterally, Blurred Vision - bilaterally, Diplopia ENT: Denies: Bilateral ear pain, Rhinorrhea, Sore throat Cardiovascular: Denies: Chest pain, Palpitations, Heart racing Respiratory: Reports: Cough. Denies: Dyspnea, Sputum, Dyspnea on exertion Gastrointestinal: Denies: Abdominal pain, Nausea, Vomiting, Diarrhea, Melena, Hematochezia Genitourinary: Denies: Dysuria, Hematuria, Frequency Musculoskeletal: Denies: Myalgias, Arthralgias, Neck pain, Back pain, Extremity Pain Skin: Denies: Rash, Wounds Neurological: Reports: Weakness. Denies: Headache, Parasthesia, Numbness Psych: Reports: Depression Endocrine: Denies: Polyuria, Polydipsia Allergy: Denies: Uticaria Physical Exam Vital Signs/Narrative: Vital Signs Temp Pulse Resp BP Pulse Ox 10/01/18 22:38 91 20 H 108/65 98 10/01/18 21:09 99 F 103 H 18 100/65 98 Inital Vital Signs reviewed: Yes General: Well nourished, Well developed, No Acute Distress Head: Normocephalic, Atraumatic Eyes: Perrl, EOMI. Negative for: Pale conjunctiva, Scleral icterus, - ENT: Moist mucous membranes, No rhinorrhea, TM's clear, - - Patient is edentulous.. Negative for: Nasal congestion, Sinus tenderness Neck: Supple, Nontender, No lymphadenopathy, No JVD Cardiovascular: Regular rhythm, No murmurs, Normal S1, Normal S2, Tachycardia Respiratory: No distress, CTA bilaterally, Chest nontender Abdomen: Soft, Nontender, Nondistended, Normal bowel sounds, No masses Back: Nontender, Normal Inspection. Negative for: CVA tenderness Extremities: Negative for: Nontender, No edema Neurological: Alert, Oriented x3, Cranial nerves II-XII grossly intact, Normal Strength, Normal Sensation, Normal DTR, Normal Gait Psychological: Depressed Diagnostic/Tx/Re-eval Laboratory Results 10/01/18 10/01/18 22:40 22:40 WBC 8.6 RBC 4.73 Hgb 13.8 Hct 39.8 MCV 84.1 MCH 29.2 MCHC 34.7 RDW 13.2 RDW Differential 40.8 Plt Count 234 MPV 9.8 Immature Gran % (Auto) 0.200 Neut % (Auto) 83.7 H Lymph % (Auto) 7.6 L [place] % (Auto) 6.2 Eos % (Auto) 2.1 Baso % (Auto) 0.2 Absolute Neuts (auto) 7.2 Absolute Lymphs (auto) 0.65 L Total Counted Not Reportable Sodium 138 Potassium 3.6 Chloride 108 H Carbon Dioxide 25.0 Anion Gap 5 BUN 12 Creatinine 0.84 Estim Creat Clear Calc 80.27 Est GFR (MDRD) Af Amer 102 Est GFR (MDRD) Non-Af 84 BUN/Creatinine Ratio 14.4 Glucose 96 Calcium 8.8 - Rhythm Strip Rhythm Strip: Sinus Tach Rate: 102 Ectopy: None - EKG Initial EKG Interpretation: Sinus Rhythm - Rate is 87. [place] interval is normal. Respirations presently prolonged at 96 ms. There is evidence of an incomplete right bundle branch block. Decreased anterior force noted. There is evidence of low voltage. - Medical Decision Making [place]-Hallpike maneuver was negative. The eye askew test and the hint test was negative. Orthostatic vitals were assessed. Patient placed on a monitor. Monitor reveals a sinus tachycardia. Orthostatic vital signs were unremarkable. Basic metabolic panel was unremarkable with no elevation BUN to creatinine ratio. White count and H&H are unremarkable. Patient will be discharged for generalized malaise. ED Disposition - Plan for ED Patient: Diagnosis: Orthostatic lightheadedness, Malaise and fatigue, Generalized weakness Instructions: ED Weakness UKO Referrals: Care Physician,No Primary [Primary Care Provider] - Additional Instructions: You will need to follow-up with your primary care doctor. The name of your doctor is on your insurance card. You were assigned that physician by your insurance carrier.
[2018-10-01 23:06] LABS: Anion Gap 5 (5-15)
[2018-10-01 23:10] VITALS: BP 100/65; BP 102/67; BP 99/77; PULSE 109; PULSE 114; PULSE 96
[2018-10-01 23:50] VITALS: BP 105/70; PULSE 92; RESP 14; O2SAT 98
== END 2018-10-01 23:59 | disposition home or self-care (01) ==
PROVIDERS: Emergency Provider Emergency Medicine
DX: I95.1 Orthostatic hypotension (principal); R53.81 Other malaise; R53.83 Other fatigue; R53.1 Weakness; R05 Cough; G40.909 Epilepsy, unspecified, not intractable, without status epilepticus; F31.9 Bipolar disorder, unspecified; F32.9 Major depressive disorder, single episode, unspecified; Z79.899 Other long term (current) drug therapy; F17.200 Nicotine dependence, unspecified, uncomplicated
CPT/HCPCS: 80048; 85025; 93005; 99285; A4216

== ENCOUNTER 2018-10-14 00:22 | Emergency (ER) | payer MEDICAID, SELFPAY ==
[2018-10-14 00:23] VITALS: BP 93/71; PULSE 70; RESP 18; TEMP 36.9; O2SAT 97; BMI 27.8
--- NOTE | 2018-10-14 00:43 | ED.DCSUM_ITS ---
- ER Visit Summary Date of Service: 10/14/18 Chief Complaint: Cough congestion History of Present Illness: The patient is a 33 F with cough congestion and some wheezing since yesterday no fever chills no chest pain. Physical Examination: [ Otherwise normal exam, patient has rhinorrhea upper airway congestion and postnasal drip. She has bronchial breath sounds with mild wheezing. She appears well, oxygenating well speaking in full sentences. Emergency Department Course and Treatment: I will treat the patient with DuoNeb and discharged in stable condition with Mucinex. She has encouraged to quit smoking. She has an inhaler at home. Discharge stable condition Impression: [acute bronchitis] This note was generated with [employer] dictation software. It may contain incorrect words, spelling, and punctuation that were not noted in review of the chart prior to signing ED Disposition - Plan for ED Patient: Disposition: Home or Assisted Living Instructions: ED Bronchitis Asthmatic Prescriptions: Guaifenesin [Mucinex] 1,200 mg PO BID #10 tab.er.12h Guaifenesin [Mucinex] 1,200 mg PO BID #10 tab.er.12h Referrals: Care Physician,No Primary [Primary Care Provider] -
[2018-10-14 00:44] VITALS: PULSE 74; RESP 16; O2SAT 98
== END 2018-10-14 00:52 | disposition home or self-care (01) ==
PROVIDERS: Emergency Provider Emergency Medicine
DX: J20.9 Acute bronchitis, unspecified (principal); J45.909 Unspecified asthma, uncomplicated; G40.909 Epilepsy, unspecified, not intractable, without status epilepticus; Z79.899 Other long term (current) drug therapy; Z72.0 Tobacco use
CPT/HCPCS: 99282

== ENCOUNTER 2019-01-30 14:37 | Emergency (ER) | payer MEDICAID, SELFPAY ==
[2019-01-30 14:39] VITALS: BP 104/51; PULSE 81; RESP 16; TEMP 36.3; O2SAT 98; BMI 27.8
--- NOTE | 2019-01-30 15:06 | RAD_ITS ---
STUDY: X-RAY CHEST REASON FOR EXAM: Female, 34 years old. Chest congestion and cough. TECHNIQUE: PA and lateral views of the chest. COMPARISON: Comparison is made with prior examination dated December 20, 2016. FINDINGS: The lungs are clear and expanded. Scattered calcified granulomas. There is no demonstrated pleural abnormality. Normal size heart. Normal mediastinum and angela. Normal visualized pulmonary arteries. Normal visualized aortic arch and descending thoracic aorta. Normal visualized thoracic spine. Normal visualized ribs, clavicles, and shoulders. There is no demonstrated abnormality of the visualized soft tissue structures of the upper abdomen. RAD/Chest PA and Lateral IMPRESSION: No acute abnormality is seen. Electronically Signed: Sabino Partida, at 15:36 EDT , Service support ,
--- NOTE | 2019-01-30 15:15 | ED.DCSUM_ITS ---
- ER Visit Summary Date of Service: 01/30/19 Chief Complaint: [Congestion and cough] History of Present Illness: The patient is a 34 F [presents to the emergency department with some congestion in her face that started last evening. Patient started with a cough this morning and chest tightness. Patient used her inhaler but did not get much relief. Patient has had some chills. She denies any fever. Cough is been dry. She denies any chest pain. She has history of asthma as well as seizure disorder.] Physical Examination: [HEENT-PERRLA, EOMI. Cranial nerves II through XII grossly intact. TMs clear. Mucous membranes moist. No adenopathy. Cardiovascular-regular rate and rhythm without murmur or ectopy Lungs-good aeration bilaterally. Patient has expiratory wheezes bilaterally. No accessory muscle use or retractions. No conversational dyspnea. Abdomen-normoactive bowel sounds, soft, nontender, no rebound or rigidity, no peritoneal signs. Extremities-intact ?4, normal range of motion, normal pulses, atraumatic] Test Results: [Chest x-ray was read by radiology as nothing acute.] Emergency Department Course and Treatment: [Given a DuoNeb aerosol and prednisone 40 mg p.o. Patient was improved after treatment.] Treatment Plan: [Will be written a prescription for an albuterol MDI as well as prednisone and Tessalon Perles. Patient will be given referral to primary care physician infection control coordinator for no doc.] Disposition: [Discharged home in stable condition.] Impression: [Asthmatic bronchitis] This note was generated with [employer] dictation software. It may contain incorrect words, spelling, and punctuation that were not noted in review of the chart prior to signing ED Disposition - Plan for ED Patient: Referrals: Care Physician,No Primary [Primary Care Provider] -
--- NOTE | 2019-01-30 15:45 | ED.DEP ---
ED Disposition - Plan for ED Patient: Instructions: BRONCHITIS with Wheezing (Adult) Prescriptions: Prednisone [Deltasone] 20 mg PO BID #10 tab Prescription Printed Benzonatate [Tessalon Perle] 200 mg PO TID PRN PRN #20 cap PRN Reason: Cough Prescription Printed Albuterol Inhaler [Ventolin Hfa] 2 puff INHALATION Q4H PRN PRN #1 inhaler PRN Reason: Wheezing Prescription Printed Referrals: Care Physician,No Primary [Primary Care Provider] - Mu Helms MD [STAFF PHYSICIAN] - 3-5 Days
[2019-01-30] MEDS: predniSONE 20 MG Tablet 40 MG PO (15:55)
== END 2019-01-30 15:57 | disposition home or self-care (01) ==
PROVIDERS: Emergency Provider Emergency Medicine
DX: J45.909 Unspecified asthma, uncomplicated (principal); G40.909 Epilepsy, unspecified, not intractable, without status epilepticus; G43.909 Migraine, unspecified, not intractable, without status migrainosus; Z85.42 Personal history of malignant neoplasm of other parts of uterus; Z79.899 Other long term (current) drug therapy
CPT/HCPCS: 71046; 99283

== ENCOUNTER 2019-07-06 23:30 | Emergency (ER) | payer MEDICAID, SELFPAY ==
[2019-07-06 23:31] VITALS: BP 114/73; PULSE 80; RESP 15; TEMP 36.6; BMI 29.0
--- NOTE | 2019-07-06 23:56 | ED.VIS.URI ---
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 Negative for: Headache, Sinus Pressure, Nausea, Vomiting, Diarrhea, Chest Pain, Hemoptysis Narrative: Feeling malaised with this. No fevers that she knows of. Has had contact with someone with bronchitis as well with someone else with influenza recently. Having myalgias and feeling poorly along with increased asthma symptoms, but not to a severe state. Has an albuterol MDI which she is using occasionally and helping. - Past Medical History (1) Seizures Status: Chronic (2) Asthma Status: Chronic (3) Bipolar disorder Status: Chronic Past Medical History - Allergies and Home Meds Allergies/Adverse Reactions: Allergies amoxicillin Allergy (Verified 07/06/19 23:35) Hives diphenhydramine HCl [From Benadryl] Allergy (Verified 07/06/19 23:35) Anaphylaxis egg Allergy (Verified 07/06/19 23:35) Hives influenza virus vaccine, specific [influenza virus vacc,specific] Allergy (Verified 07/06/19 23:35) Hives latex Allergy (Verified 07/06/19 23:35) Hives Penicillins Allergy (Verified 07/06/19 23:35) Anaphylaxis prednisone Allergy (Verified 07/06/19 23:35) Swelling tramadol Allergy (Verified 07/06/19 23:35) Angioedema sulfamethoxazole [From Bactrim] Adverse Reaction (Verified 07/06/19 23:35) Vomiting trimethoprim [From Bactrim] Adverse Reaction (Verified 07/06/19 23:35) Vomiting ENTERIC COATING Allergy (Uncoded 01/30/19 14:38) Swelling Primary Care Physician: Care Physician,No Primary [Primary Care Provider] - Lives: Spouse/ Significant Other Smoking Status: Former smoker Review of Systems General: Reports: Malaise. Denies: Chills, Fever, Sweats Eyes: Denies: Visual changes - bilaterally, Diplopia ENT: Reports: Rhinorrhea, Sore throat. Denies: Bilateral ear pain Cardiovascular: Denies: Chest pain, Palpitations Respiratory: Reports: Dyspnea - Wheezing, Cough, Sputum - Rare, clear. Denies: Dyspnea on exertion Gastrointestinal: Reports: Abdominal pain - Sore from coughing upper abdomen. Denies: Nausea, Vomiting, Diarrhea, Melena, Hematochezia Genitourinary: Denies: Dysuria, Hematuria, Frequency Musculoskeletal: Reports: Myalgias. Denies: Back pain, Extremity Pain Skin: Denies: Rash, Wounds Neurological: Denies: Headache, Weakness, Numbness Physical Exam Vital Signs/Narrative: Vital Signs Temp Pulse Resp BP 07/06/19 23:31 97.8 F 80 15 114/73 Inital Vital Signs reviewed: Yes General: Well nourished, Well developed, - - No acute distress. Occasiona nonproductive l bronchospasm. Head: Normocephalic, Atraumatic Eyes: Perrl, EOMI Ears: Normal external canal, TM's clear Nose: Congestion. Negative for: Purulent Drainage Mouth/Throat: Normal Inspection, No Posterior Erythema, Airway Patent, - - no trismus Neck: Supple, Nontender, No Lymphadenopathy, No Meningismus Cardiovascular: Regular rate, Regular rhythm, No murmurs Respiratory: No distress, Chest nontender, Wheezing. Negative for: Rales, Rhonchi Abdomen: Soft, Nontender, Nondistended, Normal bowel sounds Back: Nontender, Normal Inspection Extremities: Nontender - no hot, erythemetous, tender joints, No edema Skin: Normal color, No rash, No Trauma Neurological: Alert, Oriented x3, Cranial nerves II-XII grossly intact, Normal Strength, Normal Sensation, Normal Gait Psychological: Normal affect, Normal Mood Diagnostic/Tx/Re-eval - Medical Decision Making Consistent with either influenza, or a different viral bronchitis, in addition to an asthma exacerbation. Given a Kenalog injection, duo nebulizer aerosol, and an injection of Toradol, all of which helped. She has [id number] cold and flu medications at home as well as albuterol MDI and is comfortable with symptom control and supportive care. I do not think antibiotics are indicated here at this time, nor is Tamiflu given the timing of symptoms. ED Disposition - Plan for ED Patient: Disposition: Home or Assisted Living Diagnosis: Influenza-like illness, Acute asthma exacerbation Instructions: Acute Bronchitis, Understanding Asthma Referrals: Doctor,Your [STAFF PHYSICIAN] - 10-14 Days if not better
[2019-07-07 00:10] VITALS: PULSE 87; RESP 18
[2019-07-07] MEDS: Ipratropium/Albuterol Sulfate 3 ML AMPUL.NEB INHALATION (00:10)
[2019-07-07] MEDS: Triamcinolone Acetonide 40 MG/ML Vial IM (00:10)
[2019-07-07] MEDS: Ketorolac 60 MG/2 ML Vial IM (00:10)
[2019-07-07 00:34] VITALS: PULSE 84; RESP 16; O2SAT 98
== END 2019-07-07 00:35 | disposition home or self-care (01) ==
PROVIDERS: Emergency Provider Emergency Medicine
DX: J45.901 Unspecified asthma with (acute) exacerbation (principal); F31.9 Bipolar disorder, unspecified; Z79.899 Other long term (current) drug therapy; Z87.891 Personal history of nicotine dependence
CPT/HCPCS: 94640; 96372; 99282

== ENCOUNTER 2020-11-09 13:41 | Emergency (ER) | payer MEDICAID, SELFPAY ==
[2020-11-09 13:43] VITALS: BP 100/54; PULSE 63; RESP 16; TEMP 35.9; O2SAT 98; BMI 24.4
--- NOTE | 2020-11-09 14:15 | CM.ED ---
SOCIAL WORK Patient [facility] with [place]. Crisis assessed patient on 11/07/20. Patient here for medical clearance. Patient has been released from [facility] Dr. Briones met with patient. Patient denies suicidal ideation, plan, and intent. Patient reported to Dr. Briones was having a mental break down due to being in [facility]. Dr. Briones reports does not feel patient requires inpatient psych at this time and requests Crisis speak with patient. Call to Crisis, spoke with Yanira. Jesús to complete re-assessment. Awaiting call back at this time. Plan: Crisis to re-assess Marcela Mcdermott MSW, THIRD STEEL POURER
--- NOTE | 2020-11-09 14:31 | CM.ED ---
SOCIAL WORK Yanira from Crisis on phone with patient at this time. Marcela Mcdermott, ELEMENTARY SCHOOL ART TEACHER, DISPATCHER SHIP PILOT
--- NOTE | 2020-11-09 14:44 | CM.ED ---
SOCIAL WORK Received call from [facility] with Crisis, patient to discharge home and given contact information to follow up with Crisis. Dr. Anselmo Mcdermott, COTTAGE MASTER, COSMETIC CONSULTANT
[2020-11-09 14:47] VITALS: RESP 16
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
== END 2020-11-09 14:51 | disposition home or self-care (01) ==
PROVIDERS: Emergency Provider Emergency Medicine; PCP Family Medicine
DX: R45.851 Suicidal ideations (principal); F31.9 Bipolar disorder, unspecified; G40.909 Epilepsy, unspecified, not intractable, without status epilepticus; J45.909 Unspecified asthma, uncomplicated; F17.210 Nicotine dependence, cigarettes, uncomplicated
CPT/HCPCS: 99282

== ENCOUNTER 2021-03-13 | Emergency (ER) | payer MEDICAID, SELFPAY ==
[2021-03-13 00:01] VITALS: BP 94/66; PULSE 71; RESP 16; TEMP 36.9; O2SAT 98; BMI 26.1
[2021-03-13 00:07] VITALS: BP 94/66; PULSE 71; RESP 16; TEMP 36.9; O2SAT 98
--- NOTE | 2021-03-13 00:41 | EDS_ITS ---
HPI HPI - URI History of Present Illness Chief Complaint: Cough Informant: patient Onset/Context/Timing Onset: Weeks (1) Timing: Continuous Current Severity: Moderate Maximum Severity: Moderate Worsened by: - (n/a) Relieved by: - (nothing. tried several cough meds OTC.) Associated Symptoms Associated Symptoms: Positive for Headache, Myalgias, Diarrhea (resolved now), Shortness of Breath (wheezing) and Nonproductive cough; Negative for Nasal Congestion, Sinus Pressure, Nausea, Vomiting, Chest Pain and Hemoptysis Narrative Narrative: Patient has had coughing for the past week, feeling malaise, myalgias, some subjective fevers but nothing that she has measured, and some headaches off and on. She had some diarrhea but that went away. No known sick contacts that she knows of including Covid, she has not been tested yet. She is a heavy smoker and has been wheezing. States she was vaccinated against Covid, she had the MediBeacon single injection about 3 weeks ago. ROS ROS ED Constitutional Constitutional ED: Reports body ache(s), chills, fatigue, fever(s), headache(s) and malaise Eyes Eyes: Denies change in vision or diplopia ENT ENT ED: Denies rhinorrhea or sore throat Cardiovascular Cardiovascular: Denies chest pain or palpitations Respiratory/Chest Respiratory/Chest: Reports cough, dyspnea and wheezing Gastrointestinal Gastrointestinal: Reports diarrhea; Denies abdominal pain, nausea or vomiting Genitourinary Genitourinary ED: Denies dysuria or hematuria Musculoskeletal Musculoskeletal: Denies back pain or neck pain Integumentary Denies abscess or rash Neurologic Neurologic: Reports headache(s); Denies paresthesias or weakness Psychiatric Psychiatric: Denies anxiety or suicidal thoughts [facility] Medical History Anxiety Asthma Depression Migraines Seizures Substance abuse Home Medications albuterol sulfate [Ventolin HFA] 1 - 2 puff INHALATION Q4H PRN PRN #1 inhaler 03/13/21 [Rx Last Taken Unknown] Allergy/AdvReac Type Severity Reaction Status Date / Time amoxicillin Allergy Hives Verified 03/13/21 00:03 diphenhydramine HCl Allergy Anaphylaxis Verified 03/13/21 00:03 [From Benadryl] egg Allergy Hives Verified 03/13/21 00:03 influenza virus vaccine, Allergy Hives Verified 03/13/21 00:03 specific [influenza virus vacc,specific] latex Allergy Hives Verified 03/13/21 00:03 Penicillins Allergy Anaphylaxis Verified 03/13/21 00:03 prednisone Allergy Swelling Verified 03/13/21 00:03 tramadol Allergy Angioedema Verified 03/13/21 00:03 sulfamethoxazole AdvReac Vomiting Verified 03/13/21 00:03 [From Bactrim] trimethoprim [From Bactrim] AdvReac Vomiting Verified 03/13/21 00:03 ENTERIC COATING Allergy Swelling Uncoded 03/13/21 00:03 Social History Smoking Status: Current every day smoker tobacco type: cigarettes EXAM Physical Exam Const Vital Signs: 03/13/21 00:01 03/13/21 00:07 Temperature 98.5 F 98.5 F Temperature Source Temporal Temporal Pulse Rate 71 71 Respiratory Rate 16 16 Respiratory Effort Normal Blood Pressure 94/66 94/66 Blood Pressure Mean 75 75 Pulse Ox 98 98 Positive well nourished and well developed Constitutional Narrative: Well-appearing, no distress General Appearance ED: well developed and NAD HEENT Reports moist mucous membranes normocephalic and atraumatic Eyes PERRL and EOMs intact bilaterally Neck full ROM and supple Resp normal respiratory effort Effort and Inspection: able to speak in complete sentences Auscultation: wheezes expiratory wheezes and throughout; Negative for crackles, rales or rhonchi Cardio regular rate, regular rhythm and no murmurs Rate: Negative for tachycardic GI non-tender and non-distended Auscultation: normoactive bowel sounds Palpation: soft Back/Spine no CVA tenderness General Back: other FROM Extremity normal to inspection and no calf tenderness General Extremety ED: Negative for edema, pulses abnormal or tenderness General Extremity: Negative for edema or pulses abnormal Neuro oriented x3, CN's II-XII intact bilaterally and no sensory deficits noted Sensorium / Orientation: awake and alert Motor Exam: strength 5/5 throughout Skin no rashes or lesions noted and no wounds MDM MDM MDM Narrative Medical decision making narrative: Covid swab is negative. Patient likely has different viral URI. She has allergy/intolerance to prednisone and does not want it so she will be given an albuterol inhaler prescription to be filled here prior to discharge, and instructions for supportive care. She is in no respiratory distress. Discharge Plan Triage Chief Complaint: Cough ED Provider: Pipe Leon Dx/Rx/DC Orders Instructions: ED URI, Viral, No Abx (Adult), Asthma Prescriptions: New albuterol sulfate [Ventolin HFA] 1 INHALER inhaler 1 - 2 puff inhalation Q4H PRN PRN (Reason: Wheezing) Qty: 1 RF: 0 Primary Care Provider: Grace Kaur Referrals: Grace Kaur [Primary Care Provider] - 1 Week if not improving Disposition Disposition: Home, Self Care
[2021-03-13 01:08] VITALS: PULSE 72; RESP 17; O2SAT 97
== END 2021-03-13 01:09 | disposition home or self-care (01) ==
LOC: ED 01:08
PROVIDERS: Emergency Provider Emergency Medicine
DX: J06.9 Acute upper respiratory infection, unspecified (principal); J45.909 Unspecified asthma, uncomplicated; F17.210 Nicotine dependence, cigarettes, uncomplicated
CPT/HCPCS: 87426; 99282

== ENCOUNTER 2021-04-12 00:46 | Emergency (ER) | payer MEDICAID, SELFPAY ==
[2021-04-12 00:49] VITALS: BP 121/101; PULSE 67; RESP 16; TEMP 37.1; O2SAT 99; BMI 26.2
[2021-04-12 00:56] VITALS: BP 121/101; PULSE 67; RESP 16; TEMP 36.6; O2SAT 98
--- NOTE | 2021-04-12 00:58 | ED.RN ---
patient case discussed with Dr. Lambert. does not want stroke team called until he sees the patient
[2021-04-12 01:01] LABS: Bedside Glucose 96 mg/dL (70-110)
--- NOTE | 2021-04-12 01:28 | CT_ITS ---
EXAM: CT HEAD WITHOUT INTRAVENOUS CONTRAST CLINICAL INDICATION: Left side tingling. Left side tingling. TECHNIQUE: Multiple axial images were obtained of the head without intravenous contrast. This CT exam was performed using one or more of the following dose reduction techniques: automated exposure control, adjustment of the mA and/or kV according to patient size, and/or use of iterative reconstruction technique. This report was created using [employer] report generation technology. COMPARISON: CT scan brain on 12/17/2013. FINDINGS: BRAIN AND EXTRA-AXIAL SPACES: Unremarkable. No intra- or extra-axial hemorrhage. No evidence of acute infarct. No intracranial mass or mass effect. There is preservation of the acevedo/white matter interface. Posterior fossa structures are unremarkable. Ventricles are appropriate for age. No hydrocephalus. Basal cisterns are patent. BONES/JOINTS: Unremarkable. No discrete lytic or blastic abnormalities. SINUSES: Unremarkable as visualized. Clear. MASTOID AIR CELLS: Unremarkable. Clear. ORBITS: Visualized globes, extraocular muscles, optic nerves and retrobulbar fat appear unremarkable. CT/Brain/Head without Contrast IMPRESSION: Negative head/brain CT without intravenous contrast. Electronically Signed: Mike Joyner MD at 2:40 EST , Service support ,
--- NOTE | 2021-04-12 01:28 | EKG12_ITS ---
Test Reason : NEURO Blood Pressure : / mmHG Vent. Rate : 065 BPM Atrial Rate : 065 BPM P-R Int : 168 ms QRS Dur : 100 ms QT Int : 416 ms P-R-T Axes : 047 058 050 degrees QTc Int : 432 ms Normal sinus rhythm with sinus arrhythmia Normal ECG Confirmed by JUSTIN LORENZO, SOPHIE ([id number]), supervising editor trailer RAAD LEDEZMA ([id number]) on 04/13/2021 10:53:08 AM Referred By: HOOD Confirmed By:SOPHIE ANDERSON MD
--- NOTE | 2021-04-12 01:28 | RAD_ITS ---
STUDY: X-RAY CHEST REASON FOR EXAM: Female, 36 years old. weakness TECHNIQUE: Single AP portable view of the chest. COMPARISON: None. FINDINGS: The lungs are clear and expanded. There is no demonstrated pleural abnormality. Normal size heart. Normal mediastinum and angela. Normal visualized pulmonary arteries. Normal visualized aortic arch and descending thoracic aorta. Normal visualized thoracic spine. Normal visualized ribs, clavicles, and shoulders. There is no demonstrated abnormality of the visualized soft tissue structures of the upper abdomen. RAD/Chest 1 View (Portable) IMPRESSION: Normal x-ray examination of the chest. Electronically Signed: Stephen Ponce MD at 2:53 EST Tel , Service support ,
--- NOTE | 2021-04-12 01:29 | EDS_ITS ---
HPI History of Present Illness Chief Complaint: Neuro S/Sx Detail of Chief Complaint: Left side tingling. Informant: patient Onset/Context/Timing Onset: Today and Hours Timing: Continuous Current Severity: Mild Maximum Severity: Mild Associated Symptoms Associated Symptoms: Negative for Headache, Nausea, Vomiting and Chest Pain Narrative Narrative: 36-year-old female history of depression, asthma and seizures. Not diabetic. No prior TIA or stroke. States earlier today she had tingling in her left side and thought she noted a facial droop. This occurred after she threw up once. Denies any headache or head trauma. She is on no blood thinners. Denies any recent illness. No recent seizures. Prior similar symptoms: No Recent Illness/Hospitalization: No PFSH PFSH Medical History Anxiety Asthma Depression Migraines Seizures Substance abuse Home Medications albuterol sulfate [Ventolin HFA] 1 - 2 puff INHALATION Q4H PRN PRN #1 inhaler 03/13/21 [Rx Last Taken Unknown] Allergy/AdvReac Type Severity Reaction Status Date / Time amoxicillin Allergy Hives Verified 04/12/21 00:59 diphenhydramine HCl Allergy Anaphylaxis Verified 04/12/21 00:59 [From Benadryl] egg Allergy Hives Verified 04/12/21 00:59 influenza virus vaccine, Allergy Hives Verified 04/12/21 00:59 specific [influenza virus vacc,specific] latex Allergy Hives Verified 04/12/21 00:59 Penicillins Allergy Anaphylaxis Verified 04/12/21 00:59 prednisone Allergy Swelling Verified 04/12/21 00:59 tramadol Allergy Angioedema Verified 04/12/21 00:59 sulfamethoxazole AdvReac Vomiting Verified 04/12/21 00:59 [From Bactrim] trimethoprim [From Bactrim] AdvReac Vomiting Verified 04/12/21 00:59 ENTERIC COATING Allergy Swelling Uncoded 04/12/21 00:59 Social History Smoking Status: Current every day smoker tobacco type: cigarettes ROS ROS ED ROS Narrative Denies any recent illness. She did throw up today x1. Review of Systems ROS Unobtainable: Denies due to encephalopathy Constitutional Constitutional ED: Denies fever(s) Eyes Eyes: Denies change in vision ENT ENT ED: Denies ear pain Cardiovascular Cardiovascular: Denies chest pain Respiratory/Chest Respiratory/Chest: Denies dyspnea Gastrointestinal Gastrointestinal: Reports nausea and vomiting; Denies abdominal pain Genitourinary Genitourinary ED: Denies dysuria Musculoskeletal Musculoskeletal: Denies myalgias Integumentary Denies rash Neurologic Neurologic: Denies headache(s) Psychiatric Psychiatric: Denies depression Endocrine Endocrinology: Denies polyuria Hematologic/Lymphatic Hematologic/Lymphatic: Denies easy bruising Allergic/Immunologic Allergic/Immunologic ED: Denies urticaria EXAM Physical Exam Narrative Exam Narrative: Well-appearing 36-year female no acute distress vital signs stable afebrile. HEENT exam normal. Pupils are reactive light no facial droop. Normal speech. No trauma. Neck nontender no JVD. remarkable exam without area other than tenderness. No discoloration or bruising. Abdomen soft nontender normal bowel sounds no peritoneal signs. Pelvic girdle intact. Moving all 4 extremities. 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 Dorsi plantarflexion intact. No drift. Back upper back muscular tenderness. Spine nontender. Neurologically awake and alert. No focal motor or sensory deficits. NIH is 0. Const Vital Signs: 04/12/21 00:49 04/12/21 00:56 Temperature 98.7 F 97.8 F Temperature Source Temporal Temporal Pulse Rate 67 67 Respiratory Rate 16 16 Blood Pressure 121/101 H 121/101 H Blood Pressure Mean 107 107 Pulse Ox 99 98 Oxygen Delivery Method Room Air Room Air Positive well nourished and well developed; Negative for obese, cachectic, contractures or unkempt General Appearance ED: well developed and NAD; Negative for unkempt, cachectic or contractures Nutritional Appearance: Negative for cachectic or obese HEENT Reports moist mucous membranes atraumatic; Negative for trauma Eyes EOMs intact bilaterally General Eye ED: Yes pale conjunctiva Neck no lymphadenopathy, supple and no JVD General: Negative for tenderness Chest Wall inspection of chest normal and palpation of chest normal Resp normal respiratory effort and clear to auscultation bilaterally Auscultation: Negative for rales, rhonchi or wheezes Cardio no murmurs Rate: regular rate Rhythm: regular rhythm Heart Sounds: S1 normal and S2 normal GI normal to inspection, nondistended, normoactive bowel sounds, soft to palpation, non-tender, non-distended and no masses Inspection: Negative for abdominal distention Auscultation: normoactive bowel sounds Palpation: Negative for tender, guarding or rebound tenderness present Back/Spine no CVA tenderness General Back: Negative for CVA tenderness Cervical Spine: Negative for cervical spine tenderness Thoracic Spine / Upper Back: Negative for thoracic spinal tenderness Lumbar Spine / Lower Back: Negative for lumbar spinal tenderness Extremity normal to inspection General Extremety ED: Negative for deformity, edema or tenderness General Extremity: Negative for deformity or edema Neuro oriented x3 and CN's II-XII intact bilaterally Sensorium / Orientation: alert, oriented to person, oriented to place and oriented to time; Negative for orientation impaired, confused or lethargic Speech: speech normal Motor Exam: strength 5/5 throughout Psych mental status grossly normal Appearance: Negative for unkempt Mood & Affect: Negative for depressed Skin no wounds General Skin Exam: Negative for jaundice Lesions: no lesions Rashes: no rashes STROKE Vital Signs/Narrative: Vital Signs Temp Pulse Resp BP Pulse Ox 04/12/21 00:56 97.8 F 67 16 121/101 H 98 04/12/21 00:49 98.7 F 67 16 121/101 H 99 MDM MDM MDM Narrative Medical decision making narrative: 36-year-old female with subjective left-sided tingling. Objectively her neuro exam is normal. CAT scan labs pending. Repeat exam patient is doing well at 2:47 AM. Exam remains normal. She will be discharged home. Her labs, CAT scan EKG and chest x-ray were unremarkable. Repeat neurologic exam remains normal. Lab Data Attestation: I reviewed the patient's lab results. Lab results narrative: CBC White count of 12. Hemoglobin 13.6. Show a gap of 5 normal BUN and creatinine. Glucose of 90. Labs: Laboratory Results - last 24 hr 04/12/21 04/12/21 04/12/21 00:56 01:44 01:44 WBC 12.1 H RBC 4.63 Hgb 13.6 Hct 39.1 MCV 84.4 MCH 29.4 MCHC 34.8 RDW Std Deviation 41.5 RDW Coeff of Carlene 13.4 Plt Count 351 MPV 9.7 Immature Gran % (Auto) 0.300 Neut % (Auto) 66.3 Lymph % (Auto) 22.4 [place] % (Auto) 7.2 Eos % (Auto) 3.1 Baso % (Auto) 0.7 Absolute Neuts (auto) 8.0 H Absolute Lymphs (auto) 2.72 Nucleated RBC % 0 Sodium 141 Potassium 3.7 Chloride 113 H Carbon Dioxide 23.0 Anion Gap 5 BUN 15 Creatinine 0.83 Estim Creat Clear Calc 79.00 Est GFR (MDRD) Af Amer 101 Est GFR (MDRD) Non-Af 84 BUN/Creatinine Ratio 18.1 Glucose 90 Calcium 9.1 POC Glucose 96 Radiography Diagnostic Testing: Clinical Impression(s) from Imaging Studies Brain CT 04/12/21 01:28 IMPRESSION: Negative head/brain CT without intravenous contrast. Electronically Signed: Mike Joyner MD at 2:40 EST , Service support , Chest x-ray, portable, 1 view interpreted by myself shows no acute abnormality. Normal cardiac silhouette and mediastinum. Rhythm Strip Rhythm Strip: Sinus Rhythm Rate: 65 Ectopy: None EKG Initial EKG: Attestation: I personally reviewed and interpreted this EKG as follows: Interpretation: Sinus Rhythm and No Acute Injury Pattern Comments: Normal sinus rhythm rate of 65 no acute signs of [place] or ischemia. No significant dysrhythmia unchanged from prior EKG from 2 years ago. Prior EKG tracings: available for review Prior: Unchanged Discharge Plan Triage Chief Complaint: Neuro S/Sx ED Provider: Johnny Lambert Dx/Rx/DC Orders Clinical Impression: Acute chest wall pain, Paresthesia Instructions: ED Chest Wall Pain, Costochondritis, ED Paraesthesias Prescriptions: No Action albuterol sulfate [Ventolin HFA] 1 INHALER inhaler 1 - 2 puff inhalation Q4H PRN PRN (Reason: Wheezing) Qty: 1 RF: 0 Primary Care Provider: Care Physician,No Primary Referrals: Care Physician,No Primary [Primary Care Provider] - Activity Restrictions/Additional Instructions: Follow-up with your primary care physician. All your test tonight exam are normal. Ice to the chest wall and Motrin for pain and inflammation. Disposition Disposition: Home, Self Care
[2021-04-12 01:47] VITALS: BMI 26.2
[2021-04-12 01:52] LABS: Absolute Lymphocyte Count 2.72 X10^3/uL (0.83-4.51); Basophil# 0.08 X10^3/uL; Basophil% 0.7 % (0-1); Eosinophil# 0.37 X10^3/uL; Eosinophils% 3.1 % (0-5); Hematocrit 39.1 % (37-47); Hemoglobin 13.6 g/dL (12.0-15.0); Lymphocyte # 2.72 X10^3/ul (0.83-4.51); Lymphocyte % 22.4 % (19-41); Mean Corp Hgb Conc 34.8 g/dL (32-36); Mean Corpuscular Hgb 29.4 pg (27.0-32.0); Mean Corpuscular Volume 84.4 fL (81-99); Mean Platelet Vol. 9.7 fl (6.2-12.0); Monocyte# 0.87 X10^3/uL; Monocyte% 7.2 % (0-10); NRBC Flagged by Analyzer 0 % (0-5); Neutrophil # 8.04 X10^3/uL (2.7-7.7); Neutrophil % 66.3 % (47-70); Platelet Count 351 K/mm3 (150-450); RBC Distribution Width CV 13.4 % (11.6-14.6); RBC Distribution Width SD 41.5 fl (35.1-43.9); Red Blood Count 4.63 M/mm3 (4.2-5.4); White Blood Count 12.1 K/mm3 (4.4-11.0)
[2021-04-12 02:17] LABS: Anion Gap 5 (5-15); BUN 15 mg/dL (7-18); BUN/Creat Ratio 18.1 RATIO (10-20); Calcium,Total 9.1 mg/dL (8.5-10.1); Chloride 113 mmol/L (98-107); Creatinine, Serum 0.83 mg/dL (0.55-1.02); EST Glomerular Filtration Rate 84 mL/min (>60); Est Glom Filt Rate - Afr Amer 101 mL/min (>60); Glucose 90 mg/dL (74-106); Potassium 3.7 mmol/L (3.5-5.1); Sodium Level 141 mmol/L (136-145)
[2021-04-12 02:57] VITALS: BP 128/90; PULSE 88; RESP 18; O2SAT 96
== END 2021-04-12 02:58 | disposition home or self-care (01) ==
PROVIDERS: Emergency Provider Emergency Medicine
DX: R07.89 Other chest pain (principal); R20.2 Paresthesia of skin; F32.A Depression, unspecified; G40.909 Epilepsy, unspecified, not intractable, without status epilepticus; J45.909 Unspecified asthma, uncomplicated; F17.210 Nicotine dependence, cigarettes, uncomplicated
CPT/HCPCS: 70450; 71045; 80048; 82962; 85025; 93005; A4216

== ENCOUNTER 2021-04-12 23:37 | Emergency (ER) | payer MEDICAID, SELFPAY ==
[2021-04-12 23:37] VITALS: BP 100/65; PULSE 78; RESP 19; TEMP 36.4; O2SAT 99; BMI 25.3
--- NOTE | 2021-04-13 00:11 | EKG12_ITS ---
Test Reason : CP Blood Pressure : / mmHG Vent. Rate : 077 BPM Atrial Rate : 077 BPM P-R Int : 156 ms QRS Dur : 094 ms QT Int : 404 ms P-R-T Axes : 063 063 056 degrees QTc Int : 457 ms Normal sinus rhythm with sinus arrhythmia Normal ECG When compared with ECG of 12-APR-2021 01:37, MANUAL COMPARISON REQUIRED, DATA IS UNCONFIRMED Confirmed by CHANTE LORENZO, ROSA ([id number]), website/blog editor RAAD LEDEZMA ([id number]) on 04/19/2021 7:32:00 AM Referred By: FAUZIA Confirmed By:ROSA SHARIF MD
--- NOTE | 2021-04-13 00:11 | CT_ITS ---
STUDY: CTA CHEST REASON FOR EXAM: Female, 36 years old. chest pain RADIATION DOSAGE (If Supplied By Facility): CTDIvol = ( 6.58 ) mGy, DLP = ( 177.12 ) mGycm TECHNIQUE: The examination was performed with the intravenous administration of IV 75mL Isovue-300. Post-processing of the angiographic images was performed, with multiplanar reformation and 3D reconstruction. Individualized dose optimization techniques were used for this CT. COMPARISON: None. FINDINGS: Normal enhancement of the main pulmonary artery and right and left pulmonary arteries. Normal enhancement of the bilateral peripheral pulmonary arteries. There is no demonstrated pulmonary embolism. Normal thoracic aorta and visualized great vessels. There is no demonstrated aortic dissection. Normal heart and pericardium. Normal mediastinum. Normal hilar regions. Normal visualized trachea and bronchi. The lungs are well expanded. Normal pulmonary parenchyma. Normal pleura. Normal chest wall structures. Normal osseous structures. Normal visualized upper abdomen. CT/CTA Chest W/WO Contrast IMPRESSION: Normal CTA chest examination, without a demonstrated pulmonary embolism or arterial dissection. Electronically Signed: Stephen Ponce MD at 1:21 EST Tel , Service support ,
[2021-04-13] MEDS: 0.9% Normal Saline 1,000 ML 999 ML IV (00:23)
[2021-04-13] MEDS: Ketorolac 30 MG/ML Syringe IV (00:24)
[2021-04-13] MEDS: Orphenadrine 60 MG/2 ML Ampul IV (00:25)
[2021-04-13 00:26] VITALS: BP 99/84; PULSE 60; RESP 13; O2SAT 99
[2021-04-13 00:33] LABS: Absolute Lymphocyte Count 2.67 X10^3/uL (0.83-4.51); Absolute Neutrophil Count 4.3 X10^3/uL (2.0-7.7); Basophil# 0.05 X10^3/uL; Basophil% 0.6 % (0-1); Eosinophil# 0.38 X10^3/uL; Eosinophils% 4.6 % (0-5); Hematocrit 41.2 % (37-47); Hemoglobin 13.8 g/dL (12.0-15.0); Lymphocyte # 2.67 X10^3/ul (0.83-4.51); Lymphocyte % 32.6 % (19-41); Mean Corp Hgb Conc 33.5 g/dL (32-36); Mean Corpuscular Hgb 28.8 pg (27.0-32.0); Mean Corpuscular Volume 85.8 fL (81-99); Mean Platelet Vol. 9.9 fl (6.2-12.0); Monocyte# 0.72 X10^3/uL; Monocyte% 8.8 % (0-10); NRBC Flagged by Analyzer 0 % (0-5); Neutrophil # 4.32 X10^3/uL (2.7-7.7); Neutrophil % 52.9 % (47-70); Platelet Count 345 K/mm3 (150-450); RBC Distribution Width CV 13.4 % (11.6-14.6); RBC Distribution Width SD 42.3 fl (35.1-43.9); White Blood Count 8.2 K/mm3 (4.4-11.0)
[2021-04-13 00:46] LABS: Prothrombin Time (Protime)PT. 12.6 SECONDS (11.7-14.9)
[2021-04-13 00:58] LABS: Anion Gap 4 (5-15); BUN 10 mg/dL (7-18); Chloride 112 mmol/L (98-107); Creatinine, Serum 0.77 mg/dL (0.55-1.02); EST Glomerular Filtration Rate 91 mL/min (>60); Est Glom Filt Rate - Afr Amer 110 mL/min (>60); Estimated Creatinine Clearance 85.16 ml/min; Glucose 94 mg/dL (74-106); Magnesium 2.4 mg/dL (1.6-2.6); Potassium 3.6 mmol/L (3.5-5.1); Sodium Level 141 mmol/L (136-145); Troponin-I HS 3 pg/mL (3.0-54.0)
--- NOTE | 2021-04-13 02:47 | EX.ED.DYSGE1 ---
HPI History of Present Illness Chief Complaint: Chest Pain Narrative Narrative: Patient is a 36-year-old female who presents with left-sided chest pain. She states she was seen yesterday for a similar episode and was discharged home. She states that today she was just sitting around when she noticed left-sided pain that was sharp and stabbing in nature. Patient denies any history of hypertension hyperlipidemia diabetes or cardiac disease at a young age in the family. She does report a smoking history. She also denies any recent surgery travel or history of DVT/PE. Patient also denies any type of illicit drug use however based on the pain she was concerned and presents to the ER for repeat evaluation [facility] Medical History Anxiety Asthma Depression Migraines Seizures Substance abuse Home Medications albuterol sulfate [Ventolin HFA] 1 - 2 puff INHALATION Q4H PRN PRN #1 inhaler 03/13/21 [Rx Last Taken Unknown] ibuprofen 600 mg PO Q6H PRN PRN #40 tab 04/13/21 [Rx Last Taken Unknown] methocarbamol 1,000 mg PO Q6H PRN #56 tab 04/13/21 [Rx Last Taken Unknown] Allergy/AdvReac Type Severity Reaction Status Date / Time amoxicillin Allergy Hives Verified 04/12/21 00:59 diphenhydramine HCl Allergy Anaphylaxis Verified 04/12/21 00:59 [From Benadryl] egg Allergy Hives Verified 04/12/21 00:59 ibuprofen Allergy Anaphylaxis Verified 04/13/21 02:57 influenza virus vaccine, Allergy Hives Verified 04/12/21 00:59 specific [influenza virus vacc,specific] latex Allergy Hives Verified 04/12/21 00:59 Penicillins Allergy Anaphylaxis Verified 04/12/21 00:59 prednisone Allergy Swelling Verified 04/12/21 00:59 tramadol Allergy Angioedema Verified 04/12/21 00:59 sulfamethoxazole AdvReac Vomiting Verified 04/12/21 00:59 [From Bactrim] trimethoprim [From Bactrim] AdvReac Vomiting Verified 04/12/21 00:59 ENTERIC COATING Allergy Swelling Uncoded 04/12/21 00:59 Social History Smoking Status: Current every day smoker tobacco type: cigarettes ROS ROS ED Constitutional Constitutional ED: Denies chills or fever(s) ENT ENT ED: Denies sore throat Cardiovascular Cardiovascular: Reports chest pain Respiratory/Chest Respiratory/Chest: Denies cough or dyspnea Gastrointestinal Gastrointestinal: Denies abdominal pain, diarrhea, nausea or vomiting Genitourinary Genitourinary ED: Denies dysuria Musculoskeletal Musculoskeletal: Denies myalgias Integumentary Denies rash Neurologic Neurologic: Denies headache(s) Hematologic/Lymphatic Hematologic/Lymphatic: Denies easy bleeding or easy bruising EXAM Physical Exam Const Vital Signs: 04/12/21 23:37 04/12/21 23:41 04/13/21 00:26 Temperature 97.6 F L Temperature Source Temporal Pulse Rate 78 60 Respiratory Rate 19 H 13 Respiratory Effort Normal Respiratory Pattern Normal Blood Pressure 100/65 99/84 H Blood Pressure Mean 76 89 Pulse Ox 99 99 Oxygen Delivery Method Room Air Room Air 04/13/21 02:58 Temperature Temperature Source Pulse Rate 61 Respiratory Rate 18 Respiratory Effort Respiratory Pattern Blood Pressure 101/76 Blood Pressure Mean Pulse Ox 99 Oxygen Delivery Method Positive well nourished and well developed General Appearance ED: well developed Eyes PERRL and EOMs intact bilaterally Neck supple and no JVD Chest Wall Chest Narrative: There is reproducible pain with palpation of the anterior left chest wall rib regions 4-6 without bony deformity or crepitance. Resp normal respiratory effort Resp Narrative: Breath sounds are diminished throughout with diffuse expiratory wheeze consistent with history of smoking Cardio regular rate and regular rhythm Rate: other Other Details: Radial pulses are plus 2 out of 4 bilaterally are equal and symmetric GI normal to inspection, nondistended, normoactive bowel sounds, non-tender, non-distended and no masses Auscultation: normoactive bowel sounds Palpation: soft Extremity normal to inspection Extremity Narrative: No asymmetric edema no pitting edema negative Homans' sign bilaterally Neuro oriented x3 and CN's II-XII intact bilaterally Sensorium / Orientation: alert Motor Exam: strength 5/5 throughout Psych Psych Narrative: Patient has a flat/depressed affect Skin no rashes or lesions noted MDM MDM MDM Narrative Medical decision making narrative: Presented to the ER with stable vitals and she is low risk for cardiac disease or DVT/PE. However as she was just recently seen for a similar event I did elect to perform a CTA as well as blood work. Blood work revealed no severe electrolyte derangement or signs of heart damage. CTA revealed no PE or dissection. Therefore at this time as the pain is reproducible and her work-up is negative I feel this is most likely chest wall pain and could be mixed with pleurisy based on her smoking history and lung inflammation, either way she is not requiring supplemental oxygen she has no signs of overt infection is low risk for cardiac event so she can be discharged at this time Lab Data Attestation: I reviewed the patient's lab results. Labs: Laboratory Results - last 24 hr 04/13/21 04/13/21 04/13/21 00:22 00:22 00:22 WBC 8.2 RBC 4.80 Hgb 13.8 Hct 41.2 MCV 85.8 MCH 28.8 MCHC 33.5 RDW Std Deviation 42.3 RDW Coeff of Carlene 13.4 Plt Count 345 MPV 9.9 Immature Gran % (Auto) 0.500 Neut % (Auto) 52.9 Lymph % (Auto) 32.6 Addison % (Auto) 8.8 Eos % (Auto) 4.6 Baso % (Auto) 0.6 Absolute Neuts (auto) 4.3 Absolute Lymphs (auto) 2.67 Nucleated RBC % 0 PT 12.6 INR 1.0 APTT 31.0 Sodium 141 Potassium 3.6 Chloride 112 H Carbon Dioxide 25.0 Anion Gap 4 L BUN 10 Creatinine 0.77 Estim Creat Clear Calc 85.16 Est GFR (MDRD) Af Amer 110 Est GFR (MDRD) Non-Af 91 BUN/Creatinine Ratio 13.0 Glucose 94 Calcium 9.0 Magnesium 2.4 Troponin I High Sens 3 Radiography Diagnostic Testing: Clinical Impression(s) from Imaging Studies Chest CTA 04/13/21 00:11 IMPRESSION: Normal CTA chest examination, without a demonstrated pulmonary embolism or arterial dissection. Electronically Signed: Stephen Ponce MD at 1:21 EST Tel , Service support , Discharge Plan Triage Chief Complaint: Chest Pain ED Provider: Demetrius Herrera Dx/Rx/DC Orders Clinical Impression: Pleurisy, Chest wall pain Instructions: Pleurisy, ED Strain Chest Wall Prescriptions: New ibuprofen 600 mg tablet 600 mg PO Q6H PRN PRN (Reason: pain) Qty: 40 RF: 0 methocarbamol 500 mg tablet 1,000 mg PO Q6H PRN (Reason: Muscle pain/spasm) Qty: 56 RF: 0 No Action albuterol sulfate [Ventolin HFA] 1 INHALER inhaler 1 - 2 puff inhalation Q4H PRN PRN (Reason: Wheezing) Qty: 1 RF: 0 Primary Care Provider: Care Physician,No Primary Referrals: Jamie Tapia DO [STAFF PHYSICIAN] - 1 Week if not improving Care Physician,No Primary [Primary Care Provider] - Disposition Disposition: Home, Self Care Discharge Date/Time: 04/13/21 03:00
--- NOTE | 2021-04-13 02:57 | ED.RN ---
PT states she is allergic to Ibuprofen, makes her quit breathing. Pt states it was in her chart, I have updated her chart. Pt states she will take Tylenol instead of Ibuprofen.
[2021-04-13 02:58] VITALS: BP 101/76; PULSE 61; RESP 18; O2SAT 99
== END 2021-04-13 03:00 | disposition home or self-care (01) ==
PROVIDERS: Emergency Provider Emergency Medicine
DX: R09.1 Pleurisy (principal); R07.89 Other chest pain; G43.909 Migraine, unspecified, not intractable, without status migrainosus; J45.909 Unspecified asthma, uncomplicated; F17.210 Nicotine dependence, cigarettes, uncomplicated; R20.2 Paresthesia of skin; F32.A Depression, unspecified; G40.909 Epilepsy, unspecified, not intractable, without status epilepticus
CPT/HCPCS: 70450; 71045; 71275; 80048; 82962; 83735; 84484; 85025; 85610; 85730; 93005; 96361; 96374; 96375; 99283; 99285; J7030; Q9967; A4216

== ENCOUNTER 2021-11-25 19:53 | Emergency (ER) | payer MEDICAID, SELFPAY ==
[2021-11-25 19:54] VITALS: BP 112/75; PULSE 90; RESP 16; TEMP 36.3; O2SAT 97; BMI 26.5
[2021-11-25 21:38] VITALS: RESP 16
--- NOTE | 2021-11-25 21:38 | EX.ED.DYSGE1 ---
HPI History of Present Illness Chief Complaint: Abscess Informant: patient Narrative Narrative: Patient is a 36-year-old female presenting with pain and swelling underneath the right axilla. Is been there for 2 days. Started as a red bump and has become increasingly painful and red. Pain radiates into her breast. She denies associated drainage. Denies any history of abscesses, MRSA or other skin infections. Denies any fever or chills. No other complaints at this time. Prior similar symptoms: No PFSH PFSH Medical History Anxiety Asthma Depression Migraines Seizures Substance abuse Home Medications albuterol sulfate 90 mcg/actuation aerosol inhaler (Ventolin HFA) 1 - 2 puff inhalation Q4H PRN PRN Wheezing ##1 03/13/21 [Rx Last Taken Unknown] doxycycline hyclate 100 mg tablet 100 mg PO BID #14 tabs 11/25/21 [Rx Last Taken Unknown] Allergy/AdvReac Type Severity Reaction Status Date / Time amoxicillin Allergy Hives Verified 11/25/21 19:57 diphenhydramine HCl Allergy Anaphylaxis Verified 11/25/21 19:57 [From Benadryl] egg Allergy Hives Verified 11/25/21 19:57 ibuprofen Allergy Anaphylaxis Verified 11/25/21 19:57 influenza virus vaccine, Allergy Hives Verified 11/25/21 19:57 specific [influenza virus vacc,specific] latex Allergy Hives Verified 11/25/21 19:57 Penicillins Allergy Anaphylaxis Verified 11/25/21 19:57 prednisone Allergy Swelling Verified 11/25/21 19:57 tramadol Allergy Angioedema Verified 11/25/21 19:57 sulfamethoxazole AdvReac Vomiting Verified 11/25/21 19:57 [From Bactrim] trimethoprim [From Bactrim] AdvReac Vomiting Verified 11/25/21 19:57 ENTERIC COATING Allergy Swelling Uncoded 11/25/21 19:57 Social History Smoking Status: Current every day smoker tobacco type: cigarettes ROS ROS ED Constitutional Constitutional ED: Denies chills or fever(s) Eyes Eyes: Denies change in vision ENT ENT ED: Denies sore throat Cardiovascular Cardiovascular: Denies chest pain Respiratory/Chest Respiratory/Chest: Denies cough Gastrointestinal Gastrointestinal: Denies abdominal pain or nausea Musculoskeletal Musculoskeletal: Denies arthralgias or myalgias Integumentary Reports abscess and rash Neurologic Neurologic: Denies headache(s) or weakness Psychiatric Psychiatric: Denies anxiety EXAM Physical Exam Const Vital Signs: 11/25/21 19:54 Temperature 97.3 F L Temperature Source Temporal Pulse Rate 90 Respiratory Rate 16 Blood Pressure 112/75 Blood Pressure Mean 87 Pulse Ox 97 Oxygen Delivery Method Room Air Positive well nourished and well developed General Appearance ED: well developed and NAD HEENT Reports moist mucous membranes HEENT Narrative: Edentulous Eyes PERRL and EOMs intact bilaterally Neck no lymphadenopathy and supple Chest Wall inspection of chest normal Resp normal respiratory effort and clear to auscultation bilaterally Cardio regular rate, regular rhythm and no murmurs GI non-distended Neuro oriented x3 Motor Exam: Negative for general weakness Psych mental status grossly normal Skin Skin Narrative: 1 cm area of raised erythema underneath the right axilla/right outer breast area. Coincides with a few follicles of underarm hair. Associated to centimeter circumferential area of induration. No fluctuance appreciated. No drainage appreciated. No associated lymphangitic streaking. MDM MDM MDM Narrative Medical decision making narrative: Patient is evaluated for pain and redness underneath her right arm. Likely consistent with folliculitis developing into an abscess. Not amenable to drainage based on physical exam at this time. Patient overall well-appearing. Will start on doxycycline as patient has an allergy to Bactrim. Patient is given Tylenol. She is also given topical mupirocin. Counseled to avoid shaving in that area and to continually perform warm compresses. Counseled that at some point might require drainage and she might need return to the emergency room. She verbalizes agreement understand this plan. Discharged home in stable condition. As it is summertime patient is cautioned on avoidance of the sun while on doxycycline to prevent skin reaction. Discharge Plan Triage Chief Complaint: Abscess ED Provider: Gem Briones Dx/Rx/DC Orders Clinical Impression: Folliculitis of axilla, Abscess Instructions: ED Abscess Antibiotic Treatment Only, ED Folliculitis Prescriptions: New doxycycline hyclate 100 mg tablet 100 mg PO BID Qty: 14 0RF No Action albuterol sulfate [Ventolin HFA] 1 INHALER inhaler 1 - 2 puff inhalation Q4H PRN PRN (Reason: Wheezing) Qty: 1 0RF Primary Care Provider: Care Physician,No Primary Referrals: Care Physician,No Primary [Primary Care Provider] - Activity Restrictions/Additional Instructions: Apply warm compresses 3-4 times a day to help encourage drainage. Apply mupirocin ointment 3 times a day as well. You have been prescribed antibiotics. Be sure to stay out of the sun while on these antibiotics as they can cause severe sunburn. Take over the counter pain medicine as tolerated. Disposition Disposition: Home, Self Care
[2021-11-25] MEDS: Acetaminophen 500 MG Tablet 1000 MG PO (21:46)
[2021-11-25] MEDS: Doxycycline 100 MG CAPSULE PO (21:46)
[2021-11-25] MEDS: Mupirocin Ointment 22gm Tube 1 APPLIC TOPICAL (21:46)
== END 2021-11-25 21:52 | disposition home or self-care (01) ==
PROVIDERS: Emergency Provider Emergency Medicine; Visit Provider Emergency Medicine
DX: L02.411 Cutaneous abscess of right axilla (principal); J45.909 Unspecified asthma, uncomplicated; F17.210 Nicotine dependence, cigarettes, uncomplicated; L73.9 Follicular disorder, unspecified
CPT/HCPCS: 99283

== ENCOUNTER 2022-04-09 18:39 | Emergency (ER) | payer MEDICAID, SELFPAY ==
[2022-04-09 18:41] VITALS: BP 108/70; PULSE 65; RESP 16; TEMP 36.1; O2SAT 99; BMI 28.5
[2022-04-09] MEDS: Ipratropium/Albuterol Sulfate 3 ML AMPUL.NEB INHALATION (20:38)
[2022-04-09] MEDS: Albuterol 2.5 MG/3 ML VIAL.NEB. INHALATION (20:38)
[2022-04-09 20:39] VITALS: PULSE 68; RESP 19
[2022-04-09 20:59] VITALS: BP 97/53; PULSE 75; RESP 16; O2SAT 99
[2022-04-09] MEDS: predniSONE 20 MG Tablet 60 MG PO (21:05)
--- NOTE | 2022-04-09 21:18 | RAD_ITS ---
STUDY: X-RAY CHEST REASON FOR EXAM: Female, 37 years old. Cough. Body aches and sore throat. History of asthma. TECHNIQUE: PA and lateral views of the chest. COMPARISON: April 12, 2021. FINDINGS: The lungs are clear and expanded. There is no demonstrated pleural abnormality. Normal size heart. Normal mediastinum and angela. Normal visualized pulmonary arteries. Normal visualized aortic arch and descending thoracic aorta. Normal visualized thoracic spine. Normal visualized ribs, clavicles, and shoulders. There is no demonstrated abnormality of the visualized soft tissue structures of the upper abdomen. RAD/Chest PA and Lateral IMPRESSION: No acute cardiopulmonary disease or major interval change. Electronically Signed: Vinny Boyd DO at 21:38 EST ,
--- NOTE | 2022-04-09 21:24 | EDS_ITS ---
HPI <ROBIN Krueger - Last Filed: 04/09/22 21:29> History of Present Illness Chief Complaint: General Illness Narrative Narrative: 37-year-old female with history of seizure disorder, asthma, tobacco user, bipolar presents the emergency department 2 days of cough, body aches, increase shortness of breath. Patient states that she is concerned that there might be some pneumonia. Patient is coughing more and having a headache. She denies any sick contacts. Patient states that she is unsure where her inhaler is. She denies any nausea or vomiting. PFSH <ROBIN Krueger - Last Filed: 04/09/22 21:29> [facility] Medical History (Updated 04/09/22 @ 21:[address] Deep Willingham, DO) Anxiety Asthma Depression GERD (gastroesophageal reflux disease) Migraines Seizures Smoker Substance abuse Home Medications albuterol sulfate 90 mcg/actuation aerosol inhaler (Ventolin HFA) 1 - 2 puff inhalation Q4H PRN PRN Wheezing ##1 03/13/21 [Rx Last Taken Unknown] albuterol sulfate 90 mcg/actuation aerosol inhaler (Ventolin HFA) 1 - 2 puff inhalation Q4H PRN PRN Wheezing #8.5 grams 04/09/22 [Rx Last Taken Unknown] prednisone 50 mg tablet 50 mg PO DAILY #5 tabs 04/09/22 [Rx Last Taken Unknown] Allergy/AdvReac Type Severity Reaction Status Date / Time amoxicillin Allergy Hives Verified 04/09/22 18:41 diphenhydramine HCl Allergy Anaphylaxis Verified 04/09/22 18:41 [From Benadryl] egg Allergy Hives Verified 04/09/22 18:41 ibuprofen Allergy Anaphylaxis Verified 04/09/22 18:41 influenza virus vaccine, Allergy Hives Verified 04/09/22 18:41 specific [influenza virus vacc,specific] latex Allergy Hives Verified 04/09/22 18:41 Penicillins Allergy Anaphylaxis Verified 04/09/22 18:41 prednisone Allergy Swelling Verified 04/09/22 18:41 tramadol Allergy Angioedema Verified 04/09/22 18:41 sulfamethoxazole AdvReac Vomiting Verified 04/09/22 18:41 [From Bactrim] trimethoprim [From Bactrim] AdvReac Vomiting Verified 04/09/22 18:41 ENTERIC COATING Allergy Swelling Uncoded 04/09/22 18:41 Surgical History (Updated 04/09/22 @ 20:54 by Aracelis Handley) History of appendectomy Social History Smoking Status: Current every day smoker tobacco type: cigarettes ROS <ROBIN Krueger - Last Filed: 04/09/22 21:29> ROS ED ROS Narrative Constitutional: Negative for fever, chills, weight loss, weakness. Positive for fatigue Eyes: Negative for vision loss, vision change, double vision ENT: Negative for any sore throat, ear pain, congestion Cardiovascular: Negative for any chest pain, tightness, palpitations Respiratory: Negative for any sputum production, hemoptysis, dyspnea on exertion, orthopnea. Positive for cough, dyspnea Gastrointestinal: Negative for any abdominal pain, nausea, vomiting, diarrhea, constipation, blood in stool, blood in vomit : Negative for any urinary frequency, dysuria, retention, blood in urine Muscle skeletal: Negative for any muscle joint pain, stiffness, arthralgias, neck pain, back pain. Positive for myalgias Neurological: Negative for any headache, syncope, numbness or tingling, dizziness Skin: Negative for any rashes, lumps, itching, abrasions, lacerations Psychiatric: Negative for any depression, anxiety, stress, suicidal ideation, homicidal ideation Hematologic: Negative for any easy bruising, excessive bruising, easy bleeding Allergies: Negative for any eczema, hives, rash EXAM <ROBIN Krueger - Last Filed: 04/09/22 21:29> Physical Exam Narrative Exam Narrative: Vital signs reviewed. Patient alert and orient x4. Patient is in no obvious distress. Patient stable HEET: Head normocephalic atraumatic, TMs clear bilaterally. Posterior pharynx is clear, moist mucous membranes. Nares clear bilaterally. Neck: Supple with no lymphadenopathy or tenderness. No signs of meningismus, negative jolt sign. Cardiac: Regular rate and rhythm no murmurs gallops or rubs, equal peripheral pulses bilaterally. Respiratory: Patient did have some expiratory wheezes to bilateral lower lung bases.. No chest tenderness. Abdomen: Soft, nontender, nondistended. No abdominal bruit or pulsatile masses. No hepatosplenomegaly Extremities: No peripheral edema, no signs of gross trauma or deformity. Active full range of motion of all extremities. Neuro: Cranial nerves II through XII intact, no focal neurological deficits. Skin: Clean dry and intact with no rash, purpura, petechiae, vesicles or pustules. Backs/flank: No CVA tenderness, no midline spinal tenderness, no deformity. Psych: Normal mood and affect. No SI, HI or acute psychosis. Const Vital Signs: 04/09/22 18:41 04/09/22 20:39 04/09/22 20:52 Temperature 97 F L Temperature Source Temporal Pulse Rate 65 68 Respiratory Rate 16 19 H Respiratory Effort Non-Labored Respiratory Pattern Tachypnea Blood Pressure 108/70 Blood Pressure Mean 82 Pulse Ox 99 Oxygen Delivery Method Room Air 04/09/22 20:59 Temperature Temperature Source Pulse Rate 75 Respiratory Rate 16 Respiratory Effort Respiratory Pattern Blood Pressure 97/53 L Blood Pressure Mean 67 Pulse Ox 99 Oxygen Delivery Method Room Air Positive well nourished and well developed General Appearance ED: well developed <Dr. Deep Willingham DO - Last Filed: 04/09/22 21:47> Physical Exam Const Vital Signs: 04/09/22 18:41 04/09/22 20:39 04/09/22 20:52 Temperature 97 F L Temperature Source Temporal Pulse Rate 65 68 Respiratory Rate 16 19 H Respiratory Effort Non-Labored Respiratory Pattern Tachypnea Blood Pressure 108/70 Blood Pressure Mean 82 Pulse Ox 99 Oxygen Delivery Method Room Air 04/09/22 20:59 Temperature Temperature Source Pulse Rate 75 Respiratory Rate 16 Respiratory Effort Respiratory Pattern Blood Pressure 97/53 L Blood Pressure Mean 67 Pulse Ox 99 Oxygen Delivery Method Room Air MDM <ROBIN Krueger - Last Filed: 04/09/22 21:29> MDM Radiography Diagnostic Testing: Clinical Impression(s) from Imaging Studies Chest X-Ray 04/09/22 21:18 IMPRESSION: No acute cardiopulmonary disease or major interval change. Electronically Signed: Vinny Boyd DO at 21:38 EST , Treatment and Re-Evaluation Narrative: Patient appears well, patient appears nontoxic, vital signs are stable. Patient presents to the emergency department with complaints of cough, body aches, viral-like illness for the last 2 days. Patient did receive a two-view chest x- ray, COVID-19/influenza test. Patient did receive aerosol treatment secondary to the wheezing. <Dr. Deep Willingham, DO - Last Filed: 04/09/22 21:47> [facility] Narrative Medical decision making narrative: I have personally performed a face to face assessment of the patient and have reviewed the CINTHYA Note. I performed a substantive portion of the visit including all aspects of the following. My burnett findings include: History: Patient presents with cough and congestion that has been getting worse over the past couple days. Patient admits to some generalized body aches. Patient admits to a cough but denies any sputum production. Patient admits to subjective fevers and chills. Patient denies any nausea or vomiting. Exam: Vital signs are stable. Patient is afebrile. Patient is in no acute distress. Oral mucosa is pink and moist. Neck is supple. Trachea is midline. There is no JVD. Heart with regular rate and rhythm. Lungs are clear and equal bilaterally. Abdomen is soft and nontender. Cranial nerves II through XII are intact. There are no focal motor or sensory deficits. Medical Decision Making: Patient was given a DuoNeb aerosol here. Patient was given a dose of prednisone. PA and lateral chest x-ray was obtained. There are 2 views. On my interpretation, lung godfrey are clear. There is normal cardiac silhouette. Bony thorax is normal. There is no acute process noted. Radiologist also interpreted the x-ray and agrees. Patient was still having some wheezing on reevaluation. Patient was given a repeat albuterol aerosol here. COVID-19 rapid antigen was obtained and was negative. Influenza A and influenza B antigens were obtained and were negative. Patient was advised of her findings. Patient was instructed to follow-up with her primary care physician in 5 to 7 days. Patient was given a prescription for a short course of prednisone. Patient was given prescription for albuterol inhaler. Patient understood and was agreeable with the plan. All questions were answered. Radiography Chest X-Ray - ED: 2 View, Read by ED Physician, Read by Radiologist and No Acute Disease Diagnostic Testing: Clinical Impression(s) from Imaging Studies Chest X-Ray 04/09/22 21:18 IMPRESSION: No acute cardiopulmonary disease or major interval change. Electronically Signed: Vinny Boyd DO at 21:38 EST Reading Location ID and State: [address] [place] [address] Tel [phone], Service support , Discharge Plan Triage Chief Complaint: General Illness ED Midlevel Provider: Good Navarrete ED Provider: Deep Willingham Dx/Rx/DC Orders Clinical Impression: Viral syndrome, Asthma Instructions: ED URI, Viral, No Abx (Adult) Prescriptions: New albuterol sulfate [Ventolin HFA] 90 mcg/actuation HFA aerosol inhaler 1 - 2 puff inhalation Q4H PRN PRN (Reason: Wheezing) Qty: 8.5 0RF prednisone 50 mg tablet 50 mg PO DAILY Qty: 5 0RF No Action albuterol sulfate [Ventolin HFA] 1 INHALER inhaler 1 - 2 puff inhalation Q4H PRN PRN (Reason: Wheezing) Qty: 1 0RF Primary Care Provider: Care Physician,No Primary Referrals: Care Physician,No Primary [Primary Care Provider] - Dulce Maria Zamorano MD [Med Staff - [employer]] - 5-7 Days Disposition Disposition: Home, Self Care
[2022-04-09 22:05] VITALS: BP 96/60; PULSE 88; O2SAT 96
== END 2022-04-09 22:06 | disposition home or self-care (01) ==
PROVIDERS: Emergency Provider Emergency Medicine; Visit Provider Emergency Medicine
DX: B34.9 Viral infection, unspecified (principal); F31.9 Bipolar disorder, unspecified; G40.909 Epilepsy, unspecified, not intractable, without status epilepticus; R51.9 Headache, unspecified; J45.909 Unspecified asthma, uncomplicated; F17.210 Nicotine dependence, cigarettes, uncomplicated; Z79.52 Long term (current) use of systemic steroids
CPT/HCPCS: 71046; 87428; 99283